=== PATIENT | female | born 1955 | race Caucasian/White ===

== ENCOUNTER 2017-01-14 09:58 | Inpatient (IN) | payer MEDICAID ==
[~2017-01-14] VITALS: Ht 160 cm; Wt 79.2 kg
--- NOTE | ~2017-01-14 | CO ---
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 intake, weight loss, was admitted recently with dehydration and acute renal failures, this has improved here recently and I have been asked to place a PowerPort for adjuvant chemotherapies for the squamous cell cancer and a PEG tube for assistance with enteral nutrition as she recovers. PAST MEDICAL HISTORY: 1. Depression. 2. COPD. PAST SURGICAL HISTORY: 1. Ankle surgery. 2. Recent tonsillar cancer removal. 3. She has had some of her teeth removed recently as well. ALLERGIES: SHE HAS NO ALLERGIES. MEDICATIONS: Outlined in the hospital chart. FAMILY HISTORY: Noncontributory. SOCIAL HISTORY: She has been a drinker and smoker in the past. REVIEW OF SYSTEMS: Denies headaches. Denies chest pain or shortness of breath. No abdominal discomfort. No hematologic, neurologic, or psychiatric issues. ADMIT: 01/14/2017 RM/LOC: 509 [facility] MR#: [id number] [address] [place] [id number] S[facility] VALERIO [address] [place] [id number] Consultation SEX: F AGE: 61 : 1955 PHYSICAL EXAMINATION: GENERAL: She is afebrile. Vitals stable. HEART: Regular. LUNGS: Clear. ABDOMEN: Soft, nondistended, nontender. EXTREMITIES: No peripheral edema. NEURO: No focal neurologic deficits. ASSESSMENT AND PLAN: The patient is a 61-year-old with stage IV squamous cell cancer with poor oral intake, in need of adjuvant therapies. Our plan is for PowerPort placement and EGD, PEG tube placement in the near future. Risks and benefits were discussed. Zane Condon MD/ manjinder JOB #: [id number] CC: Kelsie James, Attending Physician Kelsie James, Family Physician
--- NOTE | ~2017-01-14 | HP ---
ADMIT: 01/14/2017 RM/LOC: 304 [facility] MR#: [id number] [address] [address] SINAI VALERIO J [address] [place] [address] History and Physical SEX: F AGE: 61 : 1955 DATE OF SERVICE: CHIEF COMPLAINT: Cognitive change, hypotension, and just not acting herself. HISTORY OF PRESENT ILLNESS: Sinai is a 61-year-old white female, who over the last 3 weeks has had quite a few things happen to her. She was having problems with the throat pain. She apparently saw her dentist (Dr. Zane Silva) who then suggested she see Dr. Seo as an oral surgeon for a biopsy of an area in the tonsil that looked suspicious. He then suggested they see Dr. Acosta, but due to it possibly being malignancy apparently set her up to be seen in [place] at the [facility]. It sounds like it was an oral surgeon. Went to [place] where they did a full dental extraction and did a biopsy of this mass. 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 Family is kind of unclear also. She got the diagnosis returned and has seen Dr. Daniels on a couple of occasions outlining the course of therapy. She is going to be needing to have a port placed as well as a G-tube in addition to other things. Since about mid week, she had been increasingly tired and run down. She has been sleeping nearly all the time. She is having a great difficulty swallowing, so has not really been taking much in. Consequently, she has become increasingly dehydrated. Today, she was incoherent, and family decided she should come in to be seen. She was brought to the emergency room where she was found to be in acute renal failure with a BUN of 122 and a creatinine of 8.2. 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 Since she has been in the emergency room and received a little fluid, she has actually improving a bit. She is a little bit more conversant. She was not found to have any sources of infection, but was acidotic at pH 7.02. There was suspicion that just lack of eating and severe dehydration combined with some narcotic she was taking for her mouth and post extraction pain all contributed. PAST MEDICAL HISTORY: Squamous cell carcinoma - stage IV, hypertension, depression, and COPD. MEDICATIONS: 1. Citalopram 10 mg daily. 2. Previously on a blood pressure pill. 3. Advair. 4. Albuterol p.r.n. Pain medications including the following that had been prescribed since her extraction by multiple providers so I am not really sure what she is taking at this moment: 1. Percocet 10/325. 2. [employer] 7.5, 1 to 2 q.6 p.r.n. 3. Morphine ER 15 mg q.12. 4. [employer] 7.5, 1 to 2 q.4 to 6 p.r.n. ALLERGIES: NONE KNOWN. ADMIT: 01/14/2017 RM/LOC: 304 [facility] MR#: [id number] [facility] [address] [address] SINAI VALERIO [address] [place] [address] History and Physical SEX: F AGE: 61 : 1955 SOCIAL HISTORY: She is single, but I am not sure if she is or not. She smoked 1 pack per day for many years. Drinks about 4 beers a day. She did quit smoking on the day of her biopsy. Otherwise, does not really have a steady job at this time. She has a son and a daughter. FAMILY HISTORY: Positive for macular degeneration in her mother. No diabetes. Possibly hypertension, but the kids are not sure. No cancer. REVIEW OF SYSTEMS: Really not able to take much because she has been obtunded and is starting to wake up. She is becoming conversant, but still not able to give us much history. PHYSICAL EXAMINATION: VITAL SIGNS: On arrival with a blood pressure 81/42, pulse 115, respirations 13, and temp 96.6. GENERAL: This is a well-developed, well-nourished white female, who is lying in bed. SKIN: Warm and dry. HEENT: Normocephalic and atraumatic. Anicteric. Mucous membranes are dry. Her eyes are kind of opened and glazed. She does focus and answer questions. NECK: Supple. Little bit of redness over on that right side. Maybe some previous bruising. LUNGS: Diminished, but loose cough. No wheezing. CARDIOVASCULAR: Regular without murmur or gallop. No ectopy. ABDOMEN: Soft. GENITOURINARY AND RECTAL: Deferred. EXTREMITIES: No edema. IMPRESSION: 1. Acute renal failure likely from dehydration. 2. Metabolic acidosis. 3. Hypotension. 4. Newly diagnosed squamous cell carcinoma of the oropharynx. 5. History of depression. 6. Chronic obstructive pulmonary disease. ADMIT: 01/14/2017 RM/LOC: 304 [facility] MR#: [id number] [facility] [address] [address] SIN[facility] VALERIO [address] [place] [address] History and Physical SEX: F AGE: 61 : 1955 PLAN: 1. IV fluids. 2. Zosyn to cover for now. 3. Bicarb. 4. Repeat labs. Hopefully, we will not have to have a employment office clerk be involved. 5. See chart. Kelsie James MD/ manjinder JOB #: [id number] CC: Kelsie James, Attending Physician Kelsie James, Family Physician Bruce Daniels MD . [facility]
--- NOTE | 2017-01-18 09:46 | CO ---
ADMIT: 01/14/2017 RM/LOC: 304 [facility] MR#: [id number] [address] [address] [facility] [address] [address] Consultation SEX: F AGE: 61 : 1955 DATE OF CONSULTATION: 01/15/2017 ATTENDING PHYSICIAN: Kelsie James CONSULTING PHYSICIAN: Jayshree Stark MD REASON FOR CONSULTATION: Acute kidney injury. HISTORY OF PRESENT ILLNESS: The patient is a 61-year-old female, who has had a rough last few weeks. She initially had a chief complaint of throat pain. Upon workup, she was noted to have a mass by her dentist. Eventually, she had a histologic diagnosis that reportedly is consistent with some squamous cell carcinoma. She did have a dental extraction last week. Since then, she has been eating poorly. She also reportedly drinks alcohol on a daily basis but she has not been eating and drinking very well for the last 2 or 3 days. In addition, she was prescribed ibuprofen for her pain that she had been taking at home. Eventually, she was brought to the hospital yesterday with altered mental status. She was noted to be in acute renal failure with creatinine of 8.2. Her BUN was elevated to 122. She was also hyperkalemic with potassium of 6.1. Her sodium was low at 128. She was given IV fluids and also some sodium bicarbonate because of the concern of her acidosis and her creatinine is down to 4.4 this morning. Her BUN is decreased to 105. Potassium is improved to 4.2. Her sodium has corrected to 141. She has a robust urine output in excess of 100 mL an hour at this time. At this time, she is comfortable. She is getting oxygen via face mask. She denies any breathing complaints. She notes that her pain is fairly well controlled. Denies any nausea or abdominal pain. She has a Packer catheter in situ. Denies any lower extremity edema. REVIEW OF SYSTEMS: A complete review of systems is negative in detail except as mentioned in history of present illness above. PAST MEDICAL HISTORY: 1. Recently-diagnosed squamous cell carcinoma of the head and neck stage IV. 2. Hypertension. 3. Depression. 4. COPD. MEDICATIONS: Reviewed in the chart. ALLERGIES: NO KNOWN DRUG ALLERGIES. SOCIAL HISTORY: She has an extensive smoking history, but reports that she quit recently. She drinks at least 4 beers a day. FAMILY HISTORY: No family history of chronic kidney disease or renal replacement therapy. ADMIT: 01/14/2017 RM/LOC: 304 [facility] MR#: [id number] [address] [address] [facility]ER[facility] [address] [place] [address] Consultation SEX: F AGE: 61 : 1955 PHYSICAL EXAMINATION: VITAL SIGNS: Temperature 99.1 Fahrenheit, pulse 106, blood pressure 112/46. In's and out's have been 5521 in and 600 mL out prior to this discharge. She has already had an L of urine since then. GENERAL: She is comfortable. HEENT: Head is nontraumatic and normocephalic. Pale conjunctivae. She is wearing a face mask for supplemental O2. No JVD. CHEST: Clear to auscultation. CVS: Tachycardic. S1, S2 heard. No rubs, murmurs, or gallops. ABDOMEN: Soft and nontender. EXTREMITIES: No edema. SKIN: No rash or nodules. MUSCULOSKELETAL: Major joints within normal limits. Range of motion within normal limits. NEUROLOGIC: She is alert and she is able to move all extremities. LABORATORY DATA: Reviewed. Trend of her electrolytes and creatinine outlined above. Most recent sodium was 141, potassium was 4.2, CO2 of 20, her creatinine is 4.2, hemoglobin is 9.3. Her ABG most recently showed pH of 7.157 with pCO2 of 49.4. Urinalysis had 1+ protein, trace blood, and negative leukocyte esterase. Her chest x-ray was unremarkable. ASSESSMENT AND PLAN: 1. 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 She is nonoliguric and her kidney function is improving. Her urinalysis is noninflammatory. Continue supportive care. Avoid nephrotoxins, NSAIDs, IV contrast, or Fleets enemas. Monitor kidney function closely. 2. Respiratory and metabolic acidosis-improving. Her acidosis is a component of the tooth. 3. Hyponatremia-she has had a rapid correction in her hyponatremia. Her hyponatremia is likely secondary to intravascular volume depletion. I will check a urine osmolality. I anticipate her serum sodium will rise further with her robust urine output this morning. I will stop her normal saline and change her to hypotonic D5 water and monitor her serum sodium with these interventions. Thank you for this consultation and allowing me the opportunity to participate in this patient's care. Please do not hesitate to contact me with any questions. Jayshree Stark MD/ manjinder JOB #: [id number] CC: Kelsie James, Attending Physician ADMIT: 01/14/2017 RM/LOC: 304 [facility] MR#: [id number] [address] [place] [id number] S[facility] VALERIO [address] [place] [address] Consultation SEX: F AGE: 61 : 1955 Kelsie James Family Physician
--- NOTE | 2017-01-22 08:11 | ER ---
ADMIT: 01/14/2017 RM/LOC: ER [facility] MR#: [id number] [address] [address] [facility]almis [address] [place] [address] Emergency Room Report SEX: F AGE: 61 : 1955 DATE: 01/14/2017 ADDENDUM: CHIEF COMPLAINT: Confusion. HISTORY OF PRESENT ILLNESS: This 61-year-old, who was recently just diagnosed with a squamous cell carcinoma, daughter believes in the tongue or the throat area. She has recently just seen multiple doctors within the last couple weeks regarding this diagnosis figuring out chemotherapy, radiation, and surgeries. Daughter said she went to go check on her today because she had a that she knew her mom had to go to. She went there. Her mom was still in her PJs. She was confused and did not know where she was. Mother could not remember when she had taken pain medications last, could not remember the last time she had ate or drank anything. COURSE IN THE EMERGENCY ROOM: Sepsis protocol was ordered. Initially, I ordered a head CT but then when viewing labs, I think her confusion is secondary to her uremia, so I spoke with Dr. Tapia, we agreed to cancel head CT at that time. She has been given a total of 1 L of normal saline, now going at 100 mL/h. Overall findings in the emergency room, EKG showed sinus tach with a rate of 105. No ST elevation or depression. No peaked T-waves. CBC showed a white count of 15.4, hemoglobin 11.3, platelets 601. Lactic acid 1.2. CMP; sodium 128, potassium 6.1, chloride 91, bicarb is 10, BUN is 122, glucose is 104, creatinine is 8.2, calcium 7.8, inorganic phosphorus is 11.9, albumin 2.7, AST 9, ALT 11, magnesium 3.5. She has an anion gap of 33. GFR of 5. Her relative index is 4.9. Troponin is 0.157. Her CK and MB are normal. PT/INR normal. Procalcitonin is 4.71. She has A negative blood. Urine showed 20 white blood cells, trace of blood, and 1+ protein. Chest x-ray showed no acute disease over-read by Dr. Tapia. At this time, after talking to Dr. James, I have ordered a V/Q scan and ABGs, those are still awaiting to be done. Dr. James is coming in to the ER to give orders for the patient. ADMIT: 01/14/2017 RM/LOC: ER [facility] MR#: [id number] [address] [place], [place] [id number] [facility] VALERIO [address] [place] [address] Emergency Room Report SEX: F AGE: 61 : 1955 CLINICAL IMPRESSION: 1. Acute renal failure. 2. Uremia. 3. Hyponatremia. 4. Hyperkalemia. 5. Elevated procalcitonin, but at this time no source of infection. DISPOSITION: I have started Zosyn down here in the emergency room, it is more of a cautionary at this time, fluids are going at 100 an hour due to her kidney injury, Dr. Tapia and I discussed after the liter of bolus to change it to 100 an hour. CRYSTAL Martinez / Richard Tapia MD / modl JOB #: [id number] CC: Richard Tapia MD, Attending Physician UNKNOWN, Family Physician
--- NOTE | 2017-01-23 09:57 | CO ---
ADMIT: 01/14/2017 RM/LOC: 304 [facility] MR#: [id number] [address] [address] IMAN [facility] Idalmis [address] [place] [address] Consultation SEX: F AGE: 61 : 1955 DATE OF CONSULTATION: 01/14/2017 ATTENDING PHYSICIAN: Kelsie James CONSULTING PHYSICIAN: Bruce Daniels MD REASON FOR CONSULTATION: Newly diagnosed cancer, acute kidney injury. HISTORY OF PRESENT ILLNESS: This is a 61-year-old female, with whom I met the very first time 4 days ago in clinic to discuss her new diagnosis of cancer. She was diagnosed with stage JENNIFER base of tongue head and neck squamous cell carcinoma. Her cancer presentation spans back approximately 6 months to last July of 2016 when she first noticed a sore throat. She went through 2 rounds of antibiotics without resolution of her sore throat and eventually made her way to a dentist who identified a mass concerning for head and neck cancer. She was referred eventually on to [facility] in early December of 2016 where she was seen by Dr. Sanchez Das and underwent a completion of her dental extraction and biopsy of the mass 10 days prior to now. The patient has been given pain medications for her odynophagia related to her mass and recent dental extraction. She informed me in our clinic visit that she was taking these every 5 hours with the pain peaking in between and significant suffering if she fell behind on her dosing. I did add 15 mg of long-acting morphine 4 days ago at our visit. She also was complaining of some depressed mood, although said she was a fighter and was of the mindset to push forward on treatment. I did start a low-dose citalopram at 10 mg daily at our meeting as well. Over the last 4 days, she has apparently declined rapidly with increasing confusion and not acting like herself. History is corroborated with her daughter who unfortunately was not there to witness all of it, but did note that her mother was contacting her less often than usual. She did not sound like herself on the phone either. The patient admitted to 40 pounds of weight loss, with the bulk of this happening in the last month and she admitted that she has been limiting herself to soups, [employer] breakfast, and other liquid forms of calories but did not have any idea of how long or how many calories she was consuming per day. From a cancer workup plan, we determined that the next steps would be to meet with Dr. Grant which did occur yesterday at initial consultation visit, place a port and a G tube for feeding and obtain a PET scan to confirm the stage JENNIFER with bilateral neck disease. At present time, however, she is in acute renal failure with significant metabolic and respiratory acidosis complications and significant hypotension at present. PAST MEDICAL HISTORY: Hypertension, depression, COPD, and tobacco abuse. MEDICATIONS: Outpatient: 1. Citalopram 10 mg daily. 2. Albuterol p.r.n. 3. Advair. 4. Percocet 10/325 q.5 hours p.r.n. ADMIT: 01/14/2017 RM/LOC: 304 [facility] MR#: [id number] [address] [place] [phone] [facility] VALERIO [address] [place] [address] Consultation SEX: F AGE: 61 : 1955 5. Morphine SA 15 mg q.12 hours. ALLERGIES: NO KNOWN MEDICAL ALLERGIES. SOCIAL HISTORY: The patient lives with a significant other named Iglesia. They have been together for over 12 years. She has greater than 40 pack years of smoking history, smoking 1 pack per day, recently decreased around the time of diagnosis. Some alcohol exposure, but denied abusing. Standard limits. She is unemployed and uninsured. She has 1 son and 1 daughter. FAMILY HISTORY: No cancer in her history. REVIEW OF SYSTEMS: Unable to perform review of systems due to the patient's lethargic state. PHYSICAL EXAM: VITAL SIGNS: Blood pressure 74/31 with a mean arterial pressure of 41, pulse 108, respiratory rate 16, temp 96.6, and saturating 91% on 2 L nasal cannula. GENERAL: This is a lethargic female, who is able to open eyes to command, but unable to answer any questions or identify any orientation questions. HEENT: Pupils are equal, round, and reactive to light. Sclerae are nonicteric. Mouth shows dry mucous membranes. Edentulous with evidence of recent tooth extraction. Stitches present in gums. Detailed exam of the base of tongue not performed, but known mass centering on the right side of the base of tongue. NECK: Shows bilateral submandibular lymphadenopathy. HEART: Tachycardic with no murmurs, rubs, or gallops. LUNGS: Clear to auscultation bilaterally. Normal respiratory effort. ABDOMEN: Soft, nondistended. Bowel sounds are positive. EXTREMITIES: Warm to touch. No livido reticularis appreciated. No clubbing. No cyanosis. No edema. SKIN: No rashes. No palpable or pigmented lesions of concern. LABORATORY AND RADIOLOGY: Arterial pH 7.022, CO2 of 40, O2 of 96. Procalcitonin 4.71, lactic acid 1.2. WBC 15.4, hemoglobin 11.3, and platelets 601. Sodium 128, potassium 6.1, chloride 91, bicarb 10, BUN 122, creatinine 8.2, calcium 7.8, and magnesium 3.5. Chest x-ray within normal limits. V/Q scan within normal limits. IMPRESSION AND RECOMMENDATIONS: This 61-year-old female with head and neck squamous cell carcinoma stage JENNIFER, base of tongue, acute kidney injury, metabolic and respiratory acidosis, septic shock. 1. Head and neck squamous cell carcinoma. The patient's current cancer planning and workup will be secondary this admission. Consideration of placing a feeding tube after acute recovery 3 or 4 days from now, may be had while she is inpatient. This may help prevent further problems with decreased oral intake, both now and after chemo radiation begins. Although she is stage JENNIFER at this time, she is still considered ADMIT: 01/14/2017 RM/LOC: 304 [facility] MR#: [id number] [address] [address] S[facility] VALERIO J [address] [place] [address] Consultation SEX: F AGE: 61 : 1955 potentially curable, thus, full aggressive cares are appropriate. I do not have the impression that she intentionally overdosed on any medications or intentionally decreased her oral intake from my previous clinic visit with her. 2. Acute renal failure. The patient is at present receiving aggressive fluids, but has several abnormalities of concern. If the patient does not correct her acidosis and hyperkalemia over the next day, temporary dialysis may be in order. 3. Hypertension. Suspect this could be stemming from a septic shock picture with cultures pending at this time. Recent dental extraction would be the leading suspect for the source of infection. She is appropriately covered with Zosyn at this time. Thank you for this interesting consultation. Please call with any further questions. Total time spent 70 minutes. Bruce Daniels MD/ manjinder JOB #: [id number] CC: Kelsie James, Attending Physician Kelsie James, Family Physician
--- NOTE | 2017-01-24 01:17 | DS ---
ADMIT: 01/14/2017 RM/LOC: 509 MR#: [id number] [address] [address] IMAN SINAI Idalmis [address] [place] [address] Discharge Summary SEX: F AGE: 61 : 1955 ADMISSION DATE: 01/14/2017 DISCHARGE DATE: 01/20/2017 DIAGNOSES: 1. Acute renal failure-resolved. 2. Metabolic acidosis. 3. Dehydration. 4. Hypotension-resolved. 5. Hypertension. 6. Squamous cell carcinoma, stage IV? 7. Right tonsil-newly diagnosed. 8. Recent dental extractions. 9. Weakness. 10.Malnutrition. 11.Encephalopathy-acute, improved. 12.Probable metabolic. 13.Hypocalcemia. 14.COPD (chronic obstructive pulmonary disease). 15.Hypokalemia. 16.Hypomagnesium. 17.Anemia, NOS (not otherwise specified). 18.C (clostridium) difficile colitis. 19.Duodenal ulcer. 20.Vanessa-Fitzgerald tear. 21.Sinus tachycardia. PROCEDURE: 1. V/Q scan 01/14/2017. 2. Art line 01/14/2017. 3. PEG 01/18/2017. 4. Port 01/18/2017. CONSULTS: 1. Oncology with Dr. Daniels. 2. Nephrology with Dr. Stark. 3. Surgery with Dr. Condon. REASON FOR HOSPITALIZATION: Cognitive change with dehydration and acute renal failure. See dictated H and P. LABORATORY AND X-RAY DATA: Chest x-ray on admission with some mild peribronchial cuffing but nothing acute. V/Q scan was negative. Stool with C diff on 01/17/2017. Blood cultures and urine cultures all were negative. On admission, pH 7.02, pCO2 40 and PO2 of 96. Final gases with a pH 7.38, pCO2 of 36 and a PO2 of 77.6. Sodium 128, did correct up to 145, final value 136. Potassium 6.1, final down to 2.8, final value 4.3. Chloride 101. CO2 was 10 on admission, 28 on discharge. BUN 22, down to 6, creatinine 8.2, down to 0.5, calcium 8.1, phosphorus 11.9 down to 2.2, total bilirubin 0.2, total protein 7.9, albumin 2.7, alkaline phosphatase 78, AST 9, ALT 11, magnesium ADMIT: 01/14/2017 RM/LOC: 509 MR#: [id number] [address] [address] SINAI VALERIO [address] [place] [address] Discharge Summary SEX: F AGE: 61 : 1955 3.5, down to 1.4. Anion was 33 down to 11. GFR started at 5, final was 104. INR 1.07, PTT 33.7, white blood count 15.4 down to 9.3, hemoglobin 11.3, final value 9.8, platelet count 328. Lactic acid 1.2. Procalcitonin 4.71. Urine was negative. 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 She was started on Zosyn in case something was going on in her mouth. Given multiple boluses of normal saline as well as bicarb due to her profound metabolic acidosis related to her renal failure. An arterial line was placed to follow with her blood pressures which were systolics in the 70 range when she was first admitted. This did help. Zosyn was eventually stopped. Magnesium, calcium and potassium were all supplemented as needed. She initially was given Levophed for blood pressure support but this was rapidly weaned off on 01/15/17. She had a prolonged period of metabolic acidosis which thankfully did start to improve. When it did, her cognition did improve. Even her motivation began to improve. She was given 48 hours of Tylenol on 01/16 due to her lack of good pain relief. This was deemed to help a little. She began having stools that were frequent. C differential was checked and was abnormal. With positive C differential, she was started on Flagyl orally. Did contact surgery for more custodial issues. She had a port placed without difficulty. With her PEG, she was taught how to supplement herself. She and her daughter did well. She began to clear mentally which was an improvement. It was felt she needed more assistance to get back on board. For this reason, she will be going to the IRU. DISCHARGE MEDICATIONS: Discharge medications will include: 1. Her tube feedings of Osmolite 1.51 120 mL t.i.d. with 30 mL water flush before and after. 2. Celexa 10 mg daily. 3. Flagyl 500 mg every 8 hours for an additional four days. 4. Lopressor 25 b.i.d. 5. Anoro ELLIPTA daily. 6. DuoNebs q.i.d. 7. Habitrol 14 mg topically patch daily. 8. Protonix 40 mg per liquid daily. ADMIT: 01/14/2017 RM/LOC: 509 MR#: [id number] [address] [address] SINAI VALERIO [address] [place] [address] Discharge Summary SEX: F AGE: 61 : 1955 9. Hydrocodone 7.5/325, one q.4 hours p.r.n. DISCHARGE INSTRUCTIONS: I will follow peripherally until she is discharged and then assume care. Overall prognosis is fair. Time spent 30 minutes. Kelsie James MD/ maia JOB #: [id number] CC: Kelsie James MD, Attending Physician Kelsie James MD, Family Physician MD Bruce Blood MD John D Goering, MD Shane J Burr, MD
[2017-01-30] MEDS ORDERED: CELEXA DPS20 MG PO (13:29)
[2017-01-30] MEDS ORDERED: LOPRESSOR DPS50 MG PO (13:29)
[2017-01-30] MEDS ORDERED: PROTONIX40 MG PO (13:29)
[2017-01-30] MEDS ORDERED: NEURONTIN DPS600 MG PO (13:29)
[2017-01-30] MEDS ORDERED: FEOSOL-DPS325 MG PO (13:29)
[2017-01-30] MEDS ORDERED: VITAMIN D50000 UNIT PO (13:30)
[2017-01-30] MEDS ORDERED: ASCORBIC ACID500 MG PO (13:30)
[2017-01-30] MEDS ORDERED: PROVENTIL HFA6.7 GM IH (13:31)
[2017-01-30] MEDS ORDERED: VITAMIN D31000 UNIT PO (13:31)
[2017-01-30] MEDS ORDERED: ANORO ELLIPTA 62.1 - IH (13:31)
[2017-01-30] MEDS ORDERED: NICODERM CQ1 EAC1 TP (13:31)
[2017-01-30] MEDS ORDERED: OXY IR DPS5 MG PO (13:32)
[2017-01-30] MEDS ORDERED: ANBESOL TP (13:32)
[2017-01-30] MEDS ORDERED: SENOKOT S1 TAB PO (13:33)
[2017-01-30] MEDS ORDERED: SPORTS CREAM85 GM TP (13:33)
--- NOTE | 2017-01-31 08:53 | CO ---
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 As a result of this surgery, the patient has been experiencing some painful swallowing and chewing, thus leading to decreased p.o. intake. Several days ago, it was noted that the patient had an acute episode of confusion and low blood pressures, so the patient has been admitted to the hospital and was in the ICU. She is now tele status. Currently, the patient denies any nausea, vomiting, diarrhea, constipation, dark or bloody stools. PAST MEDICAL HISTORY: Significant for depression, COPD. Also, please see HPI. PAST SURGICAL HISTORY: Ankle surgery. ALLERGIES: NO KNOWN DRUG ALLERGIES. MEDICATIONS: Well documented in chart. FAMILY HISTORY: Noncontributory. SOCIAL HISTORY: The patient is an alcohol and tobacco user, pre-heavy, but has quit since her recent surgery. REVIEW OF SYSTEMS: CONSTITUTIONAL: The patient denies any fever, chills, or night sweats. The rest of comprehensive 10-point review of systems was performed and all other systems are negative. PHYSICAL EXAMINATION: GENERAL: The patient in no acute distress. She is alert and oriented. HEENT: Head is normocephalic and atraumatic. EOMS are intact. Conjunctivae free of icterus, erythema, or pallor. Pinnae, free of deformities. Nose, midline. No tracheal deviation. Mouth; healing incision noted on the right aspect of the oropharynx. No dentition noted. Uvula rises appropriately. NECK: Supple. SKIN: Negative for jaundice, clubbing, edema, pallor, or cyanosis. LUNGS: Normal respiratory effort. Clear to auscultation bilaterally. HEART: Regular rate and rhythm. No murmurs noted. ABDOMEN: Soft, nondistended, and nontender. ADMIT: 01/14/2017 RM/LOC: 304 [facility] MR#: [id number] [address] [address] SINAI VALERIO [address] [place] [address] Consultation SEX: F AGE: 61 : 1955 NEURO: Grossly intact. ASSESSMENT: 1. Stage IV squamous cell carcinoma. 2. Odynophagia. PLAN: Plan is to have the patient undergo a port and EGD with PEG tube placement preferably today. I discussed the risks, alternatives, benefits, and complications of these procedures with the patient to which she in agreement of this plan, had all her questions answered and would like to proceed. I will try to put her on schedule today and see if Dr. Brizuela is available to do this case, otherwise, I will plan for Dr. Condon to do it later or possibly tomorrow. Thanks for the consultation this patient. CRYSTAL Daigle / Zane Condon MD / manjinder JOB #: [id number] CC: Kelsie James, Attending Physician Kelsie James, Family Physician
--- NOTE | 2017-01-31 08:53 | OR ---
ADMIT: 01/14/2017 RM/LOC: 509 [facility] MR#: [id number] [facility]#: [id number] [address] [address] SINAI VALERIO Idalmis [address] [place] [address] Operative/Delivery Room Report SEX: F AGE: 61 : 1955 SURGERY DATE: 01/18/2017 SURGEON: Zane Condon MD PREPROCEDURE DIAGNOSES: 1. Tonsillar cancer. 2. Failure to thrive. POSTPROCEDURE DIAGNOSES: 1. Tonsillar cancer. 2. Duodenal ulcers. 3. Vanessa-Fitzgerald tear. 4. Hiatal hernia. 5. Distal esophagitis. PROCEDURES: 1. EGD with PEG tube placement. 2. Antral biopsies. 3. Power port placement. FINDINGS: Patient taken to the operating room. IV sedation was given. The chest and neck were prepped and draped in normal sterile fashion. The case was begun by injecting 1% lidocaine subclavicularly on the right side. An introducer needle was placed in the right subclavian vein, wire was threaded under fluoroscopic guidance in the right ventricle. An Spbmho-M-Fqlw pocket was made with a #15 blade cautery and blunt finger dissection. A dilator and sheath were placed over a wire. Our catheter was cut to 15 cm and assembled. Our catheter was then threaded through our sheath under fluoroscopic guidance with the tip in the right atrium. The catheter aspirated and flushed without difficulty. It was then flushed with heparinized saline. The port was sutured to the pectoral fascia using a 2-0 Prolene suture. The wound was closed with interrupted deep 3-0 Vicryl subdermal sutures and a running 4-0 Vicryl subcuticular skin stitch. The wound was cleaned and dried and dressed. We then prepped the patient for the G-tube. We placed the gastroscope down the oropharynx, down the esophagus, into the stomach, through the pylorus into the duodenum where there were nonbleeding duodenal ulcers. I did do antral biopsies to rule out Helicobacter. On retroflexion view, there was 2-3 cm hiatal hernia and mild evidence of esophagitis. With palpation and transillumination, there was an area in the left subcostal region of the abdominal wall for safe G-tube placement. After prepping, I injected 1% ADMIT: 01/14/2017 RM/LOC: 509 [facility] MR#: [id number] [address] [address] SINAI VALERIO [address] [place] [address] Operative/Delivery Room Report SEX: F AGE: 61 : 1955 lidocaine. I made a transverse 1 cm skin incision using #11 blade. An Angiocath was placed into the stomach and a wire was threaded through the Angiocath and grasped with the wire loop and brought out through the mouth. A PEG tube was then threaded over our wire and brought up to the anterior abdominal wall with skin markings at 5 cm. The G-tube was assembled. The gastroscope was replaced down the oropharynx, down the esophagus, where it showed the G-tube in good position within the gastric body, antral junction. In addition to the duodenal ulcers that I noted, there was also a Vanessa- Fitzgerald tear in the fundic portion of the stomach that was also nonbleeding, the duodenal ulcer was nonbleeding as well. The air was desufflated, gastroscope were removed. The patient tolerated the procedure without difficulty, transferred to recovery room in good condition. Zane Condon MD/ manjinder JOB #: [id number] CC: Kelsie James, Attending Physician Kelsie James, Family Physician
[2017-04-20] MEDS ORDERED: VITAMIN D1000 UNI1 GT (14:34)
[2017-04-20] MEDS ORDERED: DELTASONE DPS10 MG GT (14:35)
[2017-04-20] MEDS ORDERED: OXY IR DPS5 MG GT (14:35)
[2017-05-03] MEDS ORDERED: CORDARONE DPS200 MG GT (14:13)
[2017-05-03] MEDS ORDERED: TYLENOL DPS325 MG GT (14:14)
[2017-05-03] MEDS ORDERED: DUONEB DPS3 ML IH (14:15)
[2017-05-03] MEDS ORDERED: CELEXA DPS20 MG GT (14:15)
[2017-05-03] MEDS ORDERED: NEURONTIN250 MG/5 M GT (14:15)
[2017-05-03] MEDS ORDERED: ROXICODONE5 MG/5 ML GT (14:16)
[2017-05-03] MEDS ORDERED: MUCOMYST 20% IH (14:16)
[2017-05-03] MEDS ORDERED: PEPCID DPS20 MG GT (14:16)
[2017-05-03] MEDS ORDERED: DELTASONE DPS5 MG GT (14:17)
[2017-05-03] MEDS ORDERED: ROBITUSSIN200 MG/10 GT (14:17)
[2017-05-03] MEDS ORDERED: LIDOCAINE VISCO15 ML PO (14:18)
[2017-05-03] MEDS ORDERED: HYDROPHOR OINT450 GM TP (14:18)
[2017-05-03] MEDS ORDERED: COLACE-DPS100 MG GT (14:19)
[2017-05-03] MEDS ORDERED: MAALOX DPS30 ML GT (14:19)
[2017-05-03] MEDS ORDERED: AUGMENTIN400 MG/5 M GT (14:20)
[2017-06-10] MEDS ORDERED: DUONEB DPS3 ML IH (19:35)
[2017-06-10] MEDS ORDERED: CORDARONE DPS200 MG PO (19:35)
[2017-06-10] MEDS ORDERED: CELEXA DPS20 MG PO (19:35)
[2017-06-10] MEDS ORDERED: GABAPENTIN250 MG/5 M PO (19:36)
[2017-06-10] MEDS ORDERED: PEPCID DPS20 MG PO (19:36)
[2017-06-10] MEDS ORDERED: ROBITUSSIN100 MG/5 M PO (19:37)
[2017-06-10] MEDS ORDERED: HYDROPHOR OINT450 GM TP (19:37)
[2017-06-10] MEDS ORDERED: LIDOCAINE VISCO15 ML PO (19:37)
[2017-06-10] MEDS ORDERED: ROXICODONE5 MG/5 ML PO (19:38)
[2017-06-10] MEDS ORDERED: TYLENOL DPS325 MG PO (19:38)
[2017-06-10] MEDS ORDERED: COLACE-DPS100 MG PO (19:38)
[2017-06-10] MEDS ORDERED: MAALOX DPS30 ML PO (19:38)
[2017-06-10] MEDS ORDERED: DURAGESIC1 EAC4 TD (19:39)
[2017-06-10] MEDS ORDERED: [UNRECOGNIZED DRUG - OTHER] PO (19:40)
[2017-06-10] MEDS ORDERED: PROVENTIL HFA6.7 GM IH (19:40)
[2017-06-10] MEDS ORDERED: VIBRAMYCIN-DPS100 M1 PO (19:41)
[2017-06-10] MEDS ORDERED: DELTASONE DPS5 MG PO (19:44)
[2017-06-10] MEDS ORDERED: [UNRECOGNIZED DRUG - OTHER] TP (19:45)
[2017-07-18] MEDS ORDERED: ROBAFEN100 MG/5 M PO (19:12)
[2017-07-18] MEDS ORDERED: ROXICODONE5 MG/5 ML PO (19:12)
[2017-07-18] MEDS ORDERED: PROAIR HFA8.5 GM IH (19:12)
[2017-07-18] MEDS ORDERED: AMIODARONE HCL100 MG PO (19:13)
[2017-07-18] MEDS ORDERED: CLARITIN DPS10 MG PO (19:13)
[2017-07-18] MEDS ORDERED: GABAPENTIN250 MG/5 M PO (19:13)
[2017-07-18] MEDS ORDERED: CELEXA DPS20 MG PO (19:13)
[2017-07-18] MEDS ORDERED: VITAMIN D1000 UNI1 PO (19:13)
[2017-07-18] MEDS ORDERED: PEPCID DPS20 MG PO (19:14)
[2017-07-18] MEDS ORDERED: DURAGESIC1 EAC3 TD (19:15)
[2017-07-18] MEDS ORDERED: COLACE-DPS100 MG PO (19:15)
[2017-07-18] MEDS ORDERED: DUONEB DPS3 ML IH (19:15)
[2017-07-18] MEDS ORDERED: DELTASONE DPS20 MG PO (19:17)
[2017-07-18] MEDS ORDERED: CIPRO DPS500 MG PO (19:17)
[2017-07-18] MEDS ORDERED: PROVENTIL2.5 MG/3 M IH (19:18)
[2017-07-18] MEDS ORDERED: TYLENOL DPS325 MG PO (19:18)
[2017-07-18] MEDS ORDERED: ACETYLCYST200 MG/1 M IH (19:20)
== END 2017-01-20 12:30 | disposition short-term general hospital (02) | DRG 673 ==
LOC: ER 09:58 → 3ICU 13:30 → 5MS 13:30 → 4PCU 16:22 → 3ICU 16:29 → 5MS 01-18 04:07
PROVIDERS: ADMIT Internal Medicine
DX: N17.9 Acute kidney failure, unspecified (principal); G93.41 Metabolic encephalopathy; E87.4 Mixed disorder of acid-base balance; K22.6 Gastro-esophageal laceration-hemorrhage syndrome; A04.7 Enterocolitis due to Clostridium difficile; I95.9 Hypotension, unspecified; C01 Malignant neoplasm of base of tongue; E46 Unspecified protein-calorie malnutrition; E87.1 Hypo-osmolality and hyponatremia; E86.0 Dehydration; E87.5 Hyperkalemia; D63.0 Anemia in neoplastic disease; E83.51 Hypocalcemia; E83.42 Hypomagnesemia; K26.9 Duodenal ulcer, unspecified as acute or chronic, without hemorrhage or perforation; K20.9 Esophagitis, unspecified; I10 Essential (primary) hypertension; K44.9 Diaphragmatic hernia without obstruction or gangrene; F32.9 Major depressive disorder, single episode, unspecified; J44.9 Chronic obstructive pulmonary disease, unspecified; F17.210 Nicotine dependence, cigarettes, uncomplicated

== ENCOUNTER 2017-01-20 11:05 | Inpatient (IN) | payer MEDICAID ==
[~2017-01-20] VITALS: Ht 160 cm; Wt 73.7 kg
--- NOTE | 2017-01-21 22:42 | NUR ---
DAY SHIFT SUMMARY:RECEIVES SUPP TUBE FEED, TOTALLY DEPENDENT;DAUIS LEARNING TF; SEE OT FIM/DOC FOR GROOMING' SHOWERING, DRESSING AND SHOWER TRANSFER. MAX ASSIST FOR WIPING AND CHANGING DEPENDS AND GETTING CLOTHING UP/DOWN FOR TOILETING, 3 BLADDER ACCIDENTS; MIN ASSIST OF 1 FOR BED/CHAIR/TOILET TRANSFERS, MAX ASSIST FOR AMBULATION RT FATIGUE
[2017-01-30] MEDS ORDERED: CELEXA DPS20 MG PO (13:29)
[2017-01-30] MEDS ORDERED: PROTONIX40 MG PO (13:29)
[2017-01-30] MEDS ORDERED: NEURONTIN DPS600 MG PO (13:29)
[2017-01-30] MEDS ORDERED: FEOSOL-DPS325 MG PO (13:29)
[2017-01-30] MEDS ORDERED: LOPRESSOR DPS50 MG PO (13:29)
[2017-01-30] MEDS ORDERED: VITAMIN D50000 UNIT PO (13:30)
[2017-01-30] MEDS ORDERED: ASCORBIC ACID500 MG PO (13:30)
[2017-01-30] MEDS ORDERED: ANORO ELLIPTA 62.1 - IH (13:31)
[2017-01-30] MEDS ORDERED: VITAMIN D31000 UNIT PO (13:31)
[2017-01-30] MEDS ORDERED: NICODERM CQ1 EAC1 TP (13:31)
[2017-01-30] MEDS ORDERED: PROVENTIL HFA6.7 GM IH (13:31)
[2017-01-30] MEDS ORDERED: OXY IR DPS5 MG PO (13:32)
[2017-01-30] MEDS ORDERED: ANBESOL TP (13:32)
[2017-01-30] MEDS ORDERED: SPORTS CREAM85 GM TP (13:33)
[2017-01-30] MEDS ORDERED: SENOKOT S1 TAB PO (13:33)
--- NOTE | 2017-03-04 16:06 | DS ---
ADMIT: 01/20/2017 RM/LOC: 605 [facility] MR#: [id number] [address] [address] SINAI VALERIO [address] [place] [address] General Discharge Summary SEX: F AGE: 61 : 1955 ADMISSION DATE: 01/20/2017 DISCHARGE DATE: 01/29/2017 DISCHARGE DIAGNOSES: Impairment group code debility 16, debility noncardiac, nonpulmonary, etiologic diagnosis R53.1, weakness. Date of onset 01/14/2017, comorbid conditions per initial H and P. Other diagnoses per hospital course below. HOSPITAL COURSE: Please see my initial H and P for details prior to transfer the IRU. In brief, stage JENNIFER squamous cell carcinoma base of tongue, head and neck status post teeth extraction with dysphagia, odynophagia, 40-pound weight loss, protein-calorie malnutrition, G-tube in right chest port status with muscle weakness and difficulty in self-care and walking. Pain and bowel regimen were adjusted. SCDs, BALDEMAR hose, early ambulation. Encouraged isometrics and ankle pumps for DVT prophylaxis, Protonix 40 mg p.o. b.i.d., Proventil b.i.d. and b.i.d. p.r.n. for GERD and COPD respectively. Hydrocodone switched to oxycodone to limit delirium risk for pain control. Lab was monitored regularly. Dietitian followed to optimize nutrition. Pharmacy followed to optimize medication management. Gabapentin started for pain control as well as scheduled Tylenol. OxyIR adjusted. Celexa increased to 20 mg for depression. Hypomagnesemia replaced with IV mag sulfate. Iron deficiency treated with Feosol and vitamin C. Routine central line standing orders for the [id number]. Fecal occult blood x2 due to anemia. Vitamin D deficiency replaced with vitamin D 50,000 units and 1000 units daily. Orajel given for discomfort in mouth. Osmolite 1.5 discontinued. The patient was tolerating oral diet to be changed to p.r.n. Flushes only to maintain the PEG. Poor fluid intake. We supplemented per PEG p.r.n. Gabapentin was increased to 600 mg. DuoNeb discontinued. Low air loss mattress ordered. The patient was medically stable at the time of discharge. ADMIT: 01/20/2017 RM/LOC: 605 [facility] MR#: [id number] [address] [address] SINAI VALERIO [address] [place] [address] General Discharge Summary SEX: F AGE: 61 : 1955 Please see IRU interdisciplinary discharge summary for details regarding progress in therapy. DISCHARGE DISPOSITION: Home where she lives alone. [facility] following RN, PT, OT, and ST. No infusion services needed at the time of discharge. Was eating well. Had all DME for home. Handicap parking permit application completed. Family supportive. DISCHARGE MEDICATIONS: Please see discharge med rec. FOLLOWUP: Dr. James in 3 to 4 weeks. Cheri Rodriguez, onc[facility] to schedule appointment for followup. I discussed with Oncology, and plan was in place this year following week for PET scan and treatment arrangements. Antonio Carolina MD/ manjinder JOB #: [id number] CC:
[2017-04-20] MEDS ORDERED: VITAMIN D1000 UNI1 GT (14:34)
[2017-04-20] MEDS ORDERED: OXY IR DPS5 MG GT (14:35)
[2017-04-20] MEDS ORDERED: DELTASONE DPS10 MG GT (14:35)
[2017-05-03] MEDS ORDERED: CORDARONE DPS200 MG GT (14:13)
[2017-05-03] MEDS ORDERED: TYLENOL DPS325 MG GT (14:14)
[2017-05-03] MEDS ORDERED: NEURONTIN250 MG/5 M GT (14:15)
[2017-05-03] MEDS ORDERED: DUONEB DPS3 ML IH (14:15)
[2017-05-03] MEDS ORDERED: CELEXA DPS20 MG GT (14:15)
[2017-05-03] MEDS ORDERED: MUCOMYST 20% IH (14:16)
[2017-05-03] MEDS ORDERED: PEPCID DPS20 MG GT (14:16)
[2017-05-03] MEDS ORDERED: ROXICODONE5 MG/5 ML GT (14:16)
[2017-05-03] MEDS ORDERED: DELTASONE DPS5 MG GT (14:17)
[2017-05-03] MEDS ORDERED: ROBITUSSIN200 MG/10 GT (14:17)
[2017-05-03] MEDS ORDERED: HYDROPHOR OINT450 GM TP (14:18)
[2017-05-03] MEDS ORDERED: LIDOCAINE VISCO15 ML PO (14:18)
[2017-05-03] MEDS ORDERED: COLACE-DPS100 MG GT (14:19)
[2017-05-03] MEDS ORDERED: MAALOX DPS30 ML GT (14:19)
[2017-05-03] MEDS ORDERED: AUGMENTIN400 MG/5 M GT (14:20)
[2017-06-10] MEDS ORDERED: DUONEB DPS3 ML IH (19:35)
[2017-06-10] MEDS ORDERED: CORDARONE DPS200 MG PO (19:35)
[2017-06-10] MEDS ORDERED: CELEXA DPS20 MG PO (19:35)
[2017-06-10] MEDS ORDERED: PEPCID DPS20 MG PO (19:36)
[2017-06-10] MEDS ORDERED: GABAPENTIN250 MG/5 M PO (19:36)
[2017-06-10] MEDS ORDERED: ROBITUSSIN100 MG/5 M PO (19:37)
[2017-06-10] MEDS ORDERED: LIDOCAINE VISCO15 ML PO (19:37)
[2017-06-10] MEDS ORDERED: HYDROPHOR OINT450 GM TP (19:37)
[2017-06-10] MEDS ORDERED: ROXICODONE5 MG/5 ML PO (19:38)
[2017-06-10] MEDS ORDERED: TYLENOL DPS325 MG PO (19:38)
[2017-06-10] MEDS ORDERED: COLACE-DPS100 MG PO (19:38)
[2017-06-10] MEDS ORDERED: MAALOX DPS30 ML PO (19:38)
[2017-06-10] MEDS ORDERED: DURAGESIC1 EAC4 TD (19:39)
[2017-06-10] MEDS ORDERED: PROVENTIL HFA6.7 GM IH (19:40)
[2017-06-10] MEDS ORDERED: [UNRECOGNIZED DRUG - OTHER] PO (19:40)
[2017-06-10] MEDS ORDERED: VIBRAMYCIN-DPS100 M1 PO (19:41)
[2017-06-10] MEDS ORDERED: DELTASONE DPS5 MG PO (19:44)
[2017-06-10] MEDS ORDERED: [UNRECOGNIZED DRUG - OTHER] TP (19:45)
[2017-07-18] MEDS ORDERED: PROAIR HFA8.5 GM IH (19:12)
[2017-07-18] MEDS ORDERED: ROXICODONE5 MG/5 ML PO (19:12)
[2017-07-18] MEDS ORDERED: ROBAFEN100 MG/5 M PO (19:12)
[2017-07-18] MEDS ORDERED: VITAMIN D1000 UNI1 PO (19:13)
[2017-07-18] MEDS ORDERED: AMIODARONE HCL100 MG PO (19:13)
[2017-07-18] MEDS ORDERED: CELEXA DPS20 MG PO (19:13)
[2017-07-18] MEDS ORDERED: CLARITIN DPS10 MG PO (19:13)
[2017-07-18] MEDS ORDERED: GABAPENTIN250 MG/5 M PO (19:13)
[2017-07-18] MEDS ORDERED: PEPCID DPS20 MG PO (19:14)
[2017-07-18] MEDS ORDERED: DURAGESIC1 EAC3 TD (19:15)
[2017-07-18] MEDS ORDERED: COLACE-DPS100 MG PO (19:15)
[2017-07-18] MEDS ORDERED: DUONEB DPS3 ML IH (19:15)
[2017-07-18] MEDS ORDERED: CIPRO DPS500 MG PO (19:17)
[2017-07-18] MEDS ORDERED: DELTASONE DPS20 MG PO (19:17)
[2017-07-18] MEDS ORDERED: PROVENTIL2.5 MG/3 M IH (19:18)
[2017-07-18] MEDS ORDERED: TYLENOL DPS325 MG PO (19:18)
[2017-07-18] MEDS ORDERED: ACETYLCYST200 MG/1 M IH (19:20)
== END 2017-01-29 10:33 | disposition home or self-care (01) | DRG 945 ==
LOC: 6IRU 12:20
PROVIDERS: ADMIT Physical Medicine & Rehabilitation
PROC: F06ZDZZ Swallowing Dysfunction Treatment (ICD-10-PCS; principal; 2017-01-20)
PROC: F07Z9FZ Gait Training/Functional Ambulation Treatment using Assistive, Adaptive, Supportive or Protective Equipment (ICD-10-PCS; principal; 2017-01-20)
PROC: F08Z1FZ Dressing Techniques Treatment using Assistive, Adaptive, Supportive or Protective Equipment (ICD-10-PCS; principal; 2017-01-20)
PROC: F08Z2FZ Grooming/Personal Hygiene Treatment using Assistive, Adaptive, Supportive or Protective Equipment (ICD-10-PCS; principal; 2017-01-20)
PROC: F08Z0FZ Bathing/Showering Techniques Treatment using Assistive, Adaptive, Supportive or Protective Equipment (ICD-10-PCS; principal; 2017-01-20)
PROC: F07Z5FZ Bed Mobility Treatment using Assistive, Adaptive, Supportive or Protective Equipment (ICD-10-PCS; principal; 2017-01-20)
DX: R53.81 Other malaise (principal); K22.6 Gastro-esophageal laceration-hemorrhage syndrome; A04.7 Enterocolitis due to Clostridium difficile; E46 Unspecified protein-calorie malnutrition; E83.42 Hypomagnesemia; C01 Malignant neoplasm of base of tongue; R13.10 Dysphagia, unspecified; K26.9 Duodenal ulcer, unspecified as acute or chronic, without hemorrhage or perforation; D62 Acute posthemorrhagic anemia; D50.9 Iron deficiency anemia, unspecified; R68.84 Jaw pain; E55.9 Vitamin D deficiency, unspecified; Z68.31 Body mass index [BMI] 31.0-31.9, adult; C76.0 Malignant neoplasm of head, face and neck; K21.0 Gastro-esophageal reflux disease with esophagitis; M62.81 Muscle weakness (generalized); K44.9 Diaphragmatic hernia without obstruction or gangrene; R26.2 Difficulty in walking, not elsewhere classified; I10 Essential (primary) hypertension; J44.9 Chronic obstructive pulmonary disease, unspecified; F32.9 Major depressive disorder, single episode, unspecified; Z87.891 Personal history of nicotine dependence; Z93.1 Gastrostomy status

== ENCOUNTER 2017-03-01 10:27 | Emergency (ER) | payer MEDICAID ==
[~2017-03-01 10:27] MED LIST: ANBESOL TP; ANORO ELLIPTA 62.1 - IH; ASCORBIC ACID500 MG PO; CELEXA DPS20 MG PO; FEOSOL-DPS325 MG PO; LOPRESSOR DPS50 MG PO; NEURONTIN DPS600 MG PO; NICODERM CQ1 EAC1 TP; OXY IR DPS5 MG PO; PROTONIX40 MG PO; PROVENTIL HFA6.7 GM IH; SENOKOT S1 TAB PO; SPORTS CREAM85 GM TP; VITAMIN D31000 UNIT PO; VITAMIN D50000 UNIT PO
--- NOTE | 2017-03-07 10:31 | ER ---
ADMIT: 03/01/2017 RM/LOC: ER [facility] MR#: [id number] [address] [address] IMANSINAI Idalmis [address] [place] [address] Emergency Room Report SEX: F AGE: 61 : 1955 DATE: 03/01/2017 ADDENDUM: A 61-year-old white female with known head and neck cancer coming in after slipping and falling and hitting her head. She has a hematoma on, a very small lac that we do not have to do anything with and then CT scan was negative. She is discharged with instructions to follow up with her oncologist as directed and then use ice and Tylenol for pain. Recheck if condition changes. Valdez Allred MD/ manjinder JOB #: [id number] CC: Valdez Allred MD, Attending Physician Kelsie James MD, Family Physician
[2017-04-20] MEDS ORDERED: VITAMIN D1000 UNI1 GT (14:34)
[2017-04-20] MEDS ORDERED: DELTASONE DPS10 MG GT (14:35)
[2017-04-20] MEDS ORDERED: OXY IR DPS5 MG GT (14:35)
[2017-05-03] MEDS ORDERED: CORDARONE DPS200 MG GT (14:13)
[2017-05-03] MEDS ORDERED: TYLENOL DPS325 MG GT (14:14)
[2017-05-03] MEDS ORDERED: DUONEB DPS3 ML IH (14:15)
[2017-05-03] MEDS ORDERED: NEURONTIN250 MG/5 M GT (14:15)
[2017-05-03] MEDS ORDERED: CELEXA DPS20 MG GT (14:15)
[2017-05-03] MEDS ORDERED: ROXICODONE5 MG/5 ML GT (14:16)
[2017-05-03] MEDS ORDERED: MUCOMYST 20% IH (14:16)
[2017-05-03] MEDS ORDERED: PEPCID DPS20 MG GT (14:16)
[2017-05-03] MEDS ORDERED: ROBITUSSIN200 MG/10 GT (14:17)
[2017-05-03] MEDS ORDERED: DELTASONE DPS5 MG GT (14:17)
[2017-05-03] MEDS ORDERED: LIDOCAINE VISCO15 ML PO (14:18)
[2017-05-03] MEDS ORDERED: HYDROPHOR OINT450 GM TP (14:18)
[2017-05-03] MEDS ORDERED: COLACE-DPS100 MG GT (14:19)
[2017-05-03] MEDS ORDERED: MAALOX DPS30 ML GT (14:19)
[2017-05-03] MEDS ORDERED: AUGMENTIN400 MG/5 M GT (14:20)
[2017-06-10] MEDS ORDERED: CORDARONE DPS200 MG PO (19:35)
[2017-06-10] MEDS ORDERED: CELEXA DPS20 MG PO (19:35)
[2017-06-10] MEDS ORDERED: DUONEB DPS3 ML IH (19:35)
[2017-06-10] MEDS ORDERED: GABAPENTIN250 MG/5 M PO (19:36)
[2017-06-10] MEDS ORDERED: PEPCID DPS20 MG PO (19:36)
[2017-06-10] MEDS ORDERED: HYDROPHOR OINT450 GM TP (19:37)
[2017-06-10] MEDS ORDERED: LIDOCAINE VISCO15 ML PO (19:37)
[2017-06-10] MEDS ORDERED: ROBITUSSIN100 MG/5 M PO (19:37)
[2017-06-10] MEDS ORDERED: ROXICODONE5 MG/5 ML PO (19:38)
[2017-06-10] MEDS ORDERED: TYLENOL DPS325 MG PO (19:38)
[2017-06-10] MEDS ORDERED: COLACE-DPS100 MG PO (19:38)
[2017-06-10] MEDS ORDERED: MAALOX DPS30 ML PO (19:38)
[2017-06-10] MEDS ORDERED: DURAGESIC1 EAC4 TD (19:39)
[2017-06-10] MEDS ORDERED: [UNRECOGNIZED DRUG - OTHER] PO (19:40)
[2017-06-10] MEDS ORDERED: PROVENTIL HFA6.7 GM IH (19:40)
[2017-06-10] MEDS ORDERED: VIBRAMYCIN-DPS100 M1 PO (19:41)
[2017-06-10] MEDS ORDERED: DELTASONE DPS5 MG PO (19:44)
[2017-06-10] MEDS ORDERED: [UNRECOGNIZED DRUG - OTHER] TP (19:45)
[2017-07-18] MEDS ORDERED: ROXICODONE5 MG/5 ML PO (19:12)
[2017-07-18] MEDS ORDERED: ROBAFEN100 MG/5 M PO (19:12)
[2017-07-18] MEDS ORDERED: PROAIR HFA8.5 GM IH (19:12)
[2017-07-18] MEDS ORDERED: AMIODARONE HCL100 MG PO (19:13)
[2017-07-18] MEDS ORDERED: CELEXA DPS20 MG PO (19:13)
[2017-07-18] MEDS ORDERED: CLARITIN DPS10 MG PO (19:13)
[2017-07-18] MEDS ORDERED: GABAPENTIN250 MG/5 M PO (19:13)
[2017-07-18] MEDS ORDERED: VITAMIN D1000 UNI1 PO (19:13)
[2017-07-18] MEDS ORDERED: PEPCID DPS20 MG PO (19:14)
[2017-07-18] MEDS ORDERED: DURAGESIC1 EAC3 TD (19:15)
[2017-07-18] MEDS ORDERED: DUONEB DPS3 ML IH (19:15)
[2017-07-18] MEDS ORDERED: COLACE-DPS100 MG PO (19:15)
[2017-07-18] MEDS ORDERED: CIPRO DPS500 MG PO (19:17)
[2017-07-18] MEDS ORDERED: DELTASONE DPS20 MG PO (19:17)
[2017-07-18] MEDS ORDERED: TYLENOL DPS325 MG PO (19:18)
[2017-07-18] MEDS ORDERED: PROVENTIL2.5 MG/3 M IH (19:18)
[2017-07-18] MEDS ORDERED: ACETYLCYST200 MG/1 M IH (19:20)
== END 2017-03-01 12:19 | disposition home or self-care (01) ==
LOC: ER 10:27
DX: S00.03XA Contusion of scalp, initial encounter (principal); C76.0 Malignant neoplasm of head, face and neck; I10 Essential (primary) hypertension; Z79.899 Other long term (current) drug therapy; W18.00XA Striking against unspecified object with subsequent fall, initial encounter; Y92.009 Unspecified place in unspecified non-institutional (private) residence as the place of occurrence of the external cause

== ENCOUNTER 2017-03-13 13:02 | Inpatient (IN) | payer MEDICAID ==
[~2017-03-13] VITALS: Ht 160 cm; Wt 75.0 kg
--- NOTE | ~2017-03-13 | CO ---
ADMIT: 03/13/2017 RM/LOC: 303 [facility] MR#: [id number] [address] [address] SINAI VALERIO [address] [place] [address] Consultation SEX: F AGE: 61 : 1955 CORRECTION: 03/22/2017 1453 vdg DATE OF CONSULTATION: 03/19/2017 ATTENDING PHYSICIAN: Kelsie James CONSULTING PHYSICIAN: Terry Acosta MD CHIEF COMPLAINT: Fresh oral bleeding. HISTORY OF PRESENT ILLNESS: Mrs. Valerio is 61-year-old. She is admitted at this time in treatment of pneumonia and lower respiratory infection, requiring intubation and ventilation. She developed oral bleeding of fresh red blood. She has history of tonsillar cancer, and is presently undergoing chemoradiation. She has completed approximately 7 weeks of radiation and the first round of chemotherapy. During this hospitalization, she required anticoagulation therapy which has subsequently been discontinued and her pulmonary status concerning pneumonia is gradually improving with anticipation of extubation without need for tracheostomy. Examination with the patient in ICU bed shows endotracheal tube in position orally. There is old blood within the oral cavity, mixed with saliva and mucus, appears to arise right-sided, but there is no fresh blood at the time of this examination. Because of the endotracheal and orogastric tube in place, visualization of the oropharynx was inadequate for complete visualization but nasal exam and oral exam shows no evidence of active bleed. (I suspect the bleed related to her known oropharyngeal squamous cell carcinoma aggravated by presence of oral tubes and institution of anticoagulant therapy). No change in treatment needed at this time from the ENT standpoint. If bleeding recurs, then repeat exam will be carried out. Complete ENT exam can be accomplished following extubation. Terry Acosta MD/ manjinder JOB #: [id number] CC: Kelsie James, Attending Physician Kelsie James, Family Physician CORRECTION: 03/22/2017 1453 vd
--- NOTE | ~2017-03-13 | ECH ---
Transthoracic Echocardiography Report (TTE) Demographics Patient Name SINAI VALERIO Date of Study 03/14/2017 Patient Number [id number] Visit Number [id number] Date of 1955 Room Number 315 Accession Number [id number] Gender Female Age 61 year(s) Referring Jacob Jansen Catechist Анна Gonzales Physician Silvio NUNEZ [place] [facility] Sukhi Cary MD Physician Interpreting Yana Stokes MD Rf Engineer Physician Supervising Ordering Physician Sukhi Cary MD/LINDA NUNEZ Nurse Stress [employer] Teacher Conclusions Summary Technically good exam. The estimated left ventricular ejection fraction is 55-60%. The left atrium is moderately dilated by LA volume index measurement. The right atrium is mildly dilated. Mild tricuspid regurgitation by color Doppler. There is mild pulmonary hypertension. The pulmonary pressure (RVSP) is 43 mmHg. Procedure Type of Study TTE procedure:Echo Complete SF. Procedure Date Date: 03/14/2017 Start: 12:36 PM Technical Quality: Good visualization Indications:Supraventricular Tachycardia, Ventricular Tachycardia and Hypertension. Appropriate Use Criteria: 9 Height: 63 inches Weight: 157 pounds BSA: 1.74 m Rhythm: Sinus tachycardia HR: 107 bpm BP: 108/62 mmHg M-Mode/2D Measurements LV Diastolic Dimension: 4.43 cm LV Systolic Dimension: 3.07 cm LV Septum Diastolic: 0.93 cm LV PW Diastolic: 0.98 cm AO Root Dimension: 3 cm Cardiac Output: 6.17 l/min LA Dimension: 4.39 cm Cardiac Index: 3.55 l/min*m RV Diastolic Dimension: 4.6 cm LA volume index: 44 ml/m LVOT: 1.93 cm LVOT VTI: 19.73 cm RV Base: 4.1 cm LV Stroke volume: 57.69 ml RV Mid: 2.7 cm LV Stroke volume index: 33.16 ml/m TAPSE: 2.3 cm TDI-S': 15 cm/s Doppler Measurements AV Peak Velocity: 1.5 m/s MV Peak E-Wave: 1.07 m/s AV Peak Gradient: 9 mmHg MV Peak A-Wave: 1.02 m/s AV Mean Gradient: 4.75 mmHg MV E/A Ratio: 1.05 LVOT Peak Velocity: 1.04 m/s MV P1/2t: 61.3 msec AV Area (Continuity):2.29 cm MV Deceleration Time: 211.3 msec TR Velocity:3.15 m/s MV Area (PHT): 3.59 cm TR Gradient:39.69 mmHg PV Peak Velocity: 1.01 m/s Estimated RAP:3 mmHg PV Peak Gradient: 4.07 mmHg Estimated RVSP: 43 mmHg Estimated PASP: 42.69 mmHg E' Septal Velocity: 0.08 m/s A' Lateral Velocity: 0.1 m/s E' Lateral Velocity: 0.14 m/s RA Area: 18.2 cm Findings Left Ventricle Normal left ventricle size and function. Diastolic assessment reveals normal relaxation. Right Ventricle Normal right ventricle structure and function. Left Atrium The left atrium is moderately dilated by LA volume index measurement. Right Atrium The right atrium is mildly dilated. Mitral Valve Normal mitral valve structure and function. Mild mitral regurgitation by color Doppler. Aortic Valve Normal aortic valve structure and function. Tricuspid Valve Normal tricuspid valve structure and function. Mild tricuspid regurgitation by color Doppler. There is mild pulmonary hypertension. The pulmonary pressure (RVSP) is 43 mmHg. Pulmonic Valve Normal pulmonic valve structure and function. Trivial pulmonic valve regurgitation by color Doppler. Pericardial Effusion No evidence of pericardial effusion. Miscellaneous Visualized portions of the aortic root and ascending aorta appear normal in size. Pleural Effusion Pleural effusion present. Signature
--- NOTE | ~2017-03-13 | CO ---
ADMIT: 03/13/2017 RM/LOC: 303 [facility] MR#: [id number] [address] [address] SINAI VALERIO J [address] [place] [address] Consultation SEX: F AGE: 61 : 1955 DATE OF CONSULTATION: 03/22/2017 ATTENDING PHYSICIAN: Kelsie James CONSULTING PHYSICIAN: Terry Acosta MD Sinai was seen in followup today concerning recent consultation for bloody drainage from oropharynx. She had recurrence of bloody drainage. She had attempt at extubation. Her ventilation weaning parameters were adequate to allow extubation trial by Dr. Louie Juan. She, however, was unable to adequately ventilate and the efforts caused recurrence of pharyngeal bleed. Because of her respiratory distress and the oropharyngeal bleeding, tracheostomy has been recommended by Dr. Juan. I am in agreement with this medical approach to help relieve the tubes within the oropharynx, allow adequate examination of the oropharynx while maintaining adequate ventilation through the tracheostomy tube. Tracheostomy will be performed 03/23/2017. Terry cAosta MD/ manjinder JOB #: [id number] CC: Kelsie James, Attending Physician Kelsie James, Family Physician
--- NOTE | 2017-03-17 13:05 | CO ---
ADMIT: 03/13/2017 RM/LOC: 315 [facility] MR#: [id number] [address] [address] SINAI VALERIO J [address] [place] [address] Consultation SEX: F AGE: 61 : 1955 DATE OF CONSULTATION: 03/14/2017 ATTENDING PHYSICIAN: Kelsie James CONSULTING PHYSICIAN: Trenton Anguiano MD REASON FOR CONSULT: Sinus tachycardia. Lorna Masters RN, scribing for Dr. Trenton Anguiano. HISTORY OF PRESENT ILLNESS: Sinai is a 61-year-old female whom I have been asked to see in cardiac consultation by Dr. Miller for tachycardia. Sinai is currently intubated and sedated. I have obtained her history and recent story from her son and daughter who are in her room presently. Sinai was seen at [facility] prior to 2009, I do not have any current records. She has history of tonsil squamous cell cancer stage IV and has been undergoing chemotherapy and radiation for that, this year. First chemo was about 2-3 weeks ago and radiation started about 7 weeks ago with her last treatment on Tuesday of this previous week, 5 days a week. Her family has been helping her with her cares but apparently at the end of this week, her mom was with her and she started having some coughing on . Her mom was concerned that she was having issues with pneumonia but she reported that she was feeling okay. Tuesday, daughter was with her and helped her and by Tuesday, she was having extreme difficulty breathing and so she was brought into the hospital by EMS where she was noted to be hypoxic requiring BiPAP and ultimately intubation. She was having some higher heart rates, questionable SVT up to 200s. As early as this morning, heart rates are anywhere from 160s to 100s. Currently, her heart rate has been about 110. She is on amiodarone drip as well as receiving some IV digoxin for heart rate. Her blood pressure has been low. She recently had Levophed drip shut off. She is currently on severiano drip at 75 mcg/minute and vasopressin drip at 0.04 units a minute. Systolic blood pressure is anywhere from 90 to about 110. Her daughter states that she has not had any complaints of chest discomfort, palpitations, presyncope, or peripheral edema. Her main complaint is just shortness of breath. She receives her feedings through the feeding tube, primarily because of her neck swelling and swallowing issues. PAST MEDICAL HISTORY: Former tobacco use, quit this year after cancer diagnosis. Previous history of acute kidney injury in December. Tonsil cancer stage IV, squamous cell with chemo and radiation. COPD. Depression. History of encephalopathy in December, resolved. Anemia. Hypertension. History of C. diff. History of duodenal ulcer. History of Vanessa-Fitzgerald tear. History of sinus tachycardia in the past. Malnutrition. G-tube in for nutritional support. History of right chest port. ALLERGIES: NO KNOWN MEDICATION ALLERGIES. MEDICATIONS: Current medications include: 1. DuoNeb 3 q.4 hours. ADMIT: 03/13/2017 RM/LOC: 315 [facility] MR#: [id number] [address] [place] [id number] SINAI VALERIO [address] [place] [address] Consultation SEX: F AGE: 61 : 1955 2. Celexa 20, G-tube daily. 3. Neurontin 600 mg, G-tube 3 times a day. 4. Granix 480 mcg daily at 1800. 5. Lovenox 30 mg subcu daily. 6. Buminate 500 mg p.r.n. elevated systolic blood pressure. 7. Amiodarone IV per protocol. 8. Fentanyl drip and Versed drip for sedation. 9. Severiano-Synephrine 75 mcg/minute. 10.Pepcid 20 mg IV daily. 11.Vasopressin 0.04 units/minute. 12.Sodium bicarb IV. 13.Vancomycin IV. FAMILY HISTORY: Noncontributory. SOCIAL HISTORY: Sinai is single. She smoked a pack a day for many years, quit this year. Four beers a day. Son and daughter help with her care as well as her mother. REVIEW OF SYSTEMS: Unobtainable due to the patient's intubation and sedation. PHYSICAL EXAMINATION: VITAL SIGNS: Blood pressure 108/62, heart rate 170 to 110, respirations 24, temperature 99.9, and oxygenation 91% on O2. GENERAL: Intubated and sedated. SKIN: [place], warm and dry. EYES: Sclerae clear. No xanthelasmas. ENT: Oral mucosa is pink and moist. No jugular venous distention or carotid bruits. ET tube in place. HEART: Regular rate and rhythm, tachycardic. LUNGS: Breath sounds distant. ABDOMEN: Soft and nontender. MUSCULOSKELETAL: Gait is normal. EXTREMITIES: Peripheral pulses palpable. No clubbing, cyanosis or edema. NEURO: Unable to answer. DIAGNOSTIC STUDIES: Chest x-ray on 03/14 showed bilateral pulmonary consolidation, left greater than right. Positive blood cultures, Strep pneumonia. Sodium 136, potassium 2.7, BUN 41, creatinine 1.9, glucose 127, magnesium 2.2, AST 121, ALT 104. INR 1.35. White blood cell count 1.2, hemoglobin 9.5, hematocrit 28.9, and platelets 460. CK 41, MB 1.2, troponin 0.447 down from 0.669 on first set. ASSESSMENT/PLAN: 1. Tachycardia appears to be supraventricular tachycardia last night, sinus ADMIT: 03/13/2017 RM/LOC: 315 [facility] MR#: [id number] [facility] [address] [address] SINAI VALERIO [address], [place] [address] Consultation SEX: F AGE: 61 : 1955 tachycardia now. She is on amiodarone. I would recommend continuing IV amiodarone and check echocardiogram for wall motion abnormalities, valvular abnormalities, or decreased ejection fraction. I will also check TSH and free T4 with EKG now and in a.m. 2. Indeterminate troponin secondary to demand ischemia. 3. Respiratory failure. 4. Squamous cell throat cancer stage IV. I will continue follow her closely. "I have read and agree with the documentation that has been completed regarding this visit. By signing this record, I attest that the documentation was completed in my physical presence and is an accurate record of the encounter." Lorna Masters RN / Trenton Anguiano MD / manjinder JOB #: [id number] CC: Kelsie James, Attending Physician Kelsie James, Family Physician
--- NOTE | 2017-03-21 18:15 | OR ---
ADMIT: 03/13/2017 RM/LOC: 315 [facility] MR#: [id number] [address] [address] IMAN SINAI Idalmis [address] [place] [address] Operative/Delivery Room Report SEX: F AGE: 61 : 1955 SURGERY DATE: 03/17/2017 SURGEON: Josiah Strange MD PROCEDURE PERFORMED: Flexible fiberoptic bronchoscopy. PREPROCEDURE DIAGNOSIS: Respiratory failure with pulmonary infiltrates and worsening white blood count. POSTPROCEDURE DIAGNOSES: 1. Excessive purulent secretions, left greater than right with some mucus plugging. 2. No endobronchial lesions. SPECIMEN OBTAINED: 1. Mixed bronch washing obtained. 2. Bronchoalveolar lavage performed via left upper lobe. This is a 61-year-old female with respiratory failure, pneumonia, and worsening white blood count. X-ray is worsened. Flexible fiberoptic bronchoscopy is indicated. Informed consent was obtained from the family and they understand risks and benefits including, but not limited to those listed on the consent form and agreed to proceed. The patient is currently sedated on the ventilator. Flexible fiberoptic bronchoscopy is performed via existing endotracheal tube. Cardiac rhythm, blood pressure, and oxygen saturations are monitored throughout the procedure. Visualized portion of the trachea is normal. Suly is sharp and mobile. Examination of tracheobronchial tree (RV 1 through 10 and LV 1 through 10) reveals significant amount of purulent secretions present. This is worse on the left than on the right. There is some mucus plugging involving the left lower lobe airways as well. This is all cleared with therapeutic suction and saline washings. A mixed bronch washing was obtained in this fashion. Subsequent examination in the segmental level reveals no evidence of endobronchial lesion. The right tracheobronchial tree also has some exudative secretions, but not nearly as significant as the left. This is all cleared. No ADMIT: 03/13/2017 RM/LOC: 315 [facility] MR#: [id number] [address] [address] SINAI VALERIO [address] [place] [address] Operative/Delivery Room Report SEX: F AGE: 61 : 1955 endobronchial lesion is identified. A bronchoalveolar lavage is performed via LV 3 (left upper lobe). The patient tolerated the procedure well. There are no immediate complications. Cardiac rhythm, blood pressure, and oxygen saturations remained stable. The above specimens were sent for appropriate cytology and microbiologic studies. Josiah Strange MD/ manjinder JOB #: [id number] CC: Kelsie James, Attending Physician Kelsie James, Family Physician MD Bruce Win MD
--- NOTE | 2017-03-26 08:19 | ER ---
ADMIT: 03/13/2017 RM/LOC: 315 [facility] MR#: [id number] [address] [address] SINAI VALERIO [address] [place] [address] Emergency Room Report SEX: F AGE: 61 : 1955 DATE: 03/13/2017 ADDENDUM: A 61-year-old white female with oropharyngeal cancer, unknown stage or if it is metastatic coming in with shortness of breath. She does have COPD on top of that. Hypoxic, brought in by ambulance. We put her on BiPAP fairly soon after she got here. White count 0.5 and hemoglobin 10.5. Creatinine 2.5. SGOT 211, SGPT 130. Troponin slightly up at 0.669. Lactate is 2.9. Blood gas on 15 L; 7.3 pH, pCO2 of 37, PO2 of 67. Chest x-ray, she has a left lobe pneumonia, more upper, cannot rule out metastatic disease at this time. I had put her on Zosyn. At this time, we spoke with Dr. Isbell who is covering Dr. James. She has also gotten a DuoNeb treatment as well. CONDITION ON DISCHARGE: Critical. Valdez Allred MD/ modl JOB #: [id number] CC: Kelsie James MD, Attending Physician Kelsie James MD, Family Physician
--- NOTE | 2017-03-29 07:43 | OR ---
ADMIT: 03/13/2017 RM/LOC: 303 [facility] MR#: [id number] [address] [address] SINAI VALERIO Idalmis [address] [place] [address] Operative/Delivery Room Report SEX: F AGE: 61 : 1955 SURGERY DATE: 03/24/2017 SURGEON: Terry Acosta MD PREOPERATIVE DIAGNOSIS: Respiratory insufficiency, endotracheal tube dependent with prolonged intubation. POSTOPERATIVE DIAGNOSIS: Respiratory insufficiency, endotracheal tube dependent with prolonged intubation. OPERATION: Tracheostomy. ANESTHESIA: General. COMPLICATIONS: None. TUBE: #8 fenestrated Shiley cuffed. PROCEDURE IN DETAIL: With the patient in the supine position in her ICU hospital bed with the neck slightly extended, the anterior neck was prepped with ChloraPrep, allowed 3 minutes to dry. The patient was draped sterilely. An incision was planned in the supramanubrial region. The tissues were inflated with Xylocaine with epinephrine 1:100,000, after good vasoconstriction. An incision was made with the Bovie cautery of approximately 2 to 2-1/2 cm. The dissection was continued horizontally to the platysmal layer, and then vertically the strap muscles with blunt dissection. During the dissection, small vessels were encountered and treated with electrocautery. Dissection was continued medially. The cricoid bone was identified by palpation. The trachea was identified by palpation and exposed by blunt dissection. The anterior tracheal wall was entered with a right angle hook and the trachea secured. An incision was made in an inner tracheal ADMIT: 03/13/2017 RM/LOC: 303 [facility] MR#: [id number] [address] [address] SINAI VALERIO [address] [place] [address] Operative/Delivery Room Report SEX: F AGE: 61 : 1955 space below the 2nd tracheal cartilage and the incision extended laterally with blunt dissection using scissors. There was mucopurulence within the trachea, cleaned with suctioning. The opening was enlarged to admit a #8 Shiley tracheostomy tube. The endotracheal tube was then retracted and the #8 Shiley tube placed in the trachea without difficulty. Ventilation was then continued through the tracheostomy tube and there was good ventilation, good exchange, there was no bleeding from the trachea. During the procedure, she lost approximately 5 to 10 mL of blood, but good hemostasis following procedure. Right trach dressing was applied and the trach tube was taped into position with trach tapes, ventilation continued directly through the tracheostomy tube. She tolerated the procedure well and emerged from the anesthesia while in intensive care hospital bed. Terry Acosta MD/ manjinder JOB #: [id number] CC: Kelsie James, Attending Physician Kelsie James, Family Physician
--- NOTE | 2017-03-30 16:25 | CO ---
ADMIT: 03/13/2017 RM/LOC: 303 [facility] MR#: [id number] [address] [address] SINAI VALERIO J [address] [place] [address] Consultation SEX: F AGE: 61 : 1955 DATE OF CONSULTATION: 03/18/2017 ATTENDING PHYSICIAN: Kelsie James CONSULTING PHYSICIAN: Panfilo West MD REASON FOR CONSULTATION: Flex sigmoidoscopy to check for severity of C. diff colitis. HISTORY OF PRESENT ILLNESS: Sinai is a 61-year-old female, who unfortunately has been diagnosed with stage IV squamous cell carcinoma of the tonsils and tongue recently who has been admitted to the Intensive Care Unit for increased shortness of breath, cough, and ongoing hypoxemia. She is currently being treated for pneumonia. Apparently, the patient has been dealing with ongoing C. difficile infection. She initially had problems with this during her last admission, was approximately back in December of this year. Currently she is intubated. Stool is positive for current C. diff. Throughout her stay, it was noted that her white count continued to increase and so we have been consulted to assess for severity of C. diff colitis. PAST MEDICAL HISTORY: 1. 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 2. C. difficile colitis. 3. Depression. 4. COPD. PAST SURGICAL HISTORY: 1. Recent EGD performed in December of this year revealed tonsillar cancer, duodenal ulcers, Vanessa-Fitzgerald tear, hiatal hernia, and distal esophagitis. 2. Resection for carcinoma of the oropharynx. 3. G-tube placement. ALLERGIES: NO KNOWN DRUG ALLERGIES. MEDICATIONS: Well documented in chart. FAMILY HISTORY: Noncontributory. SOCIAL HISTORY: The patient is a former alcohol and tobacco user. REVIEW OF SYSTEMS: Unobtainable due to the patient's current condition. PHYSICAL EXAMINATION: GENERAL: The patient is intubated and hard to arouse. She does respond to painful stimuli. HEENT: Head is normocephalic and atraumatic. Eyes are closed. Pinnae free of deformities. Nose, midline. No tracheal deviation. NECK: Supple. SKIN: Negative for jaundice, clubbing, edema, pallor, or cyanosis. ADMIT: 03/13/2017 RM/LOC: 303 [facility] MR#: [id number] [address] [address] SINAI VALERIO [address] [place] [address] Consultation SEX: F AGE: 61 : 1955 LUNGS: The patient intubated. HEART: Distal pulses intact. Tachycardic. ABDOMEN: Soft, nondistended. Generalized tenderness as noted with face grimacing. MUSCULOSKELETAL: Passive range of motion preserved in all 4 extremities. LABORATORY DATA: White blood cell count 42. ASSESSMENT: Clostridium difficile colitis, confirmation of severity. PLAN: I will plan to have the patient proceed with sigmoidoscopy to further assess for severity of C. diff colitis. I will reassess with Dr. West's schedule to see when we can get this done and go from there. Once I have schedule in place, I will discuss the risks with flex sigmoidoscopy with the patient's POA and hopefully get this done soon. Thank you for the consultation. CRYSTAL Daigle / Panfilo West MD / manjinder JOB #: [id number] CC: Kelsie James, Attending Physician Kelsie James, Family Physician
--- NOTE | 2017-03-31 12:10 | HP ---
ADMIT: 03/13/2017 RM/LOC: 315 [facility] MR#: [id number] [address] [address] SINAI MOON [address] [place] [address] History and Physical SEX: F AGE: 61 : 1955 DATE OF SERVICE: CHIEF COMPLAINT: Shortness of breath and a fever. HISTORY OF PRESENT ILLNESS: Ms. Moon is a very pleasant, 61-year-old female. She has a past medical history significant for the unfortunate history of her recent diagnosis of squamous cell carcinoma of the tonsil with possible metastasis that is kind of unclear to me. She is status post chemo on Tuesday, and reports that since then she has been doing okay. She reports she has been having some diarrhea, but she did have a fever, cough productive of some phlegm, and increased shortness of breath. She came into the ER by squad, and was noted to be profoundly hypoxemic and actually required BiPAP. She otherwise reports that she has been having some diarrhea. Of note, she was admitted back in December, and at that time had been diagnosed with acute renal failure, metabolic acidosis, dehydration, hypotension at that time. Otherwise, it is difficult to take history as she does have the BiPAP mask on, but she really does not have any other complaints at this time. PAST MEDICAL HISTORY: Significant. 1. Hypertension. 2. Squamous cell carcinoma of the tonsil stage IV apparently. 3. Depression. 4. History of COPD. 5. History of acute renal failure in December, resolved. 6. History of encephalopathy in December, resolved. 7. Anemia. 8. History of C. diff colitis. 9. History of duodenal ulcer. 10.History of Vanessa-Fitzgerald tear. 11.History of sinus tachycardia. 12.History of protein-calorie malnutrition. 13.History of G-tube in for nutrition. 14.History of right chest port. ALLERGIES: NO KNOWN MEDICAL ALLERGIES. MEDICATIONS: Her home medications are: 1. Ranitidine 150 p.o. b.i.d. 2. DuoNeb 4 times daily as needed. 3. Tylenol 325 p.o. q.4 hours as needed. 4. Celexa 20 mg p.o. daily. 5. Vitamin D 50,000 units once a week. 6. Gabapentin 600 mg p.o. three times a day. 7. Metoprolol 25 mg p.o. b.i.d. 8. Oxycodone 5 mg 1-2 every 4 hours as needed. 9. Proventil 2 puffs four times daily as needed. 10.Anoro everyday. SOCIAL HISTORY: She is single. She has smoked a pack a day for many years. ADMIT: 03/13/2017 RM/LOC: 315 [facility] MR#: [id number] [address] [address] SINAI MOON [address] [place] [address] History and Physical SEX: F AGE: 61 : 1955 Drinks four beers a day. Did quit smoking here recently. She has a son and a daughter. Her son is her medical [id number]. FAMILY HISTORY: Positive for macular degeneration in her mother. No diabetes, possibly hypertension. REVIEW OF SYSTEMS: Difficult to obtain, but otherwise is essentially negative. PHYSICAL EXAMINATION: GENERAL: She is alert. 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 She is in somewhat respiratory distress. HEENT: Pupils are equal, round, reactive. Oropharynx is very dry mucous membranes. NECK: Supple. HEART: Tachycardic rate with a regular rhythm. LUNGS: Really diminished breath sounds on the left. ABDOMEN: Soft. Bowel sounds are present. She has a G-tube that is clean, dry, and intact. EXTREMITIES: Have no evidence of edema. ASSESSMENT AND PLAN: 1. Hypoxemia profound at this time. Her chest x-ray shows a very significant left upper and lower lobe pneumonia as well as some right- sided infiltrate. 2. She is requiring high oxygen requirements on her BiPAP. We will go ahead and repeat an ABG to make sure we are oxygenating efficiently. With her neutropenia, we will dose her with Maxipime and Vanco. We will also plan to get a sputum Gram stain, as well as monitor her lactic acid, procalcitonin and give her fluids. 3. History of recent clostridium difficile and some ongoing diarrhea. We will check a clostridium difficile. ADMIT: 03/13/2017 RM/LOC: 315 [facility] MR#: [id number] [address] [place] [address] SINAI MOON J [address] [place] [address] History and Physical SEX: F AGE: 61 : 1955 4. History of Chronic obstructive pulmonary disease. Continue her DuoNeb q.4 hours. 5. Hypomagnesemia. We will replace. 6. Acute renal failure. We will go ahead and check her spot urine lytes. We will go ahead and give her lots of IV fluids and may need to consult Nephrology. 7. Chronic pain. Continue her gabapentin and oxycodone. 8. Hypertension. We will hold her metoprolol at this time. 9. Gastroesophageal reflux disease with duodenal ulcer. We will continue her ranitidine. 10.Code status: I did discuss it with the patient and it sounds as if she would want everything done at this time. Ghazala Isbell MD/ manjinder JOB #: [id number] CC: Kelsie James, Attending Physician Kelsie James, Family Physician
--- NOTE | 2017-04-04 08:38 | CO ---
ADMIT: 03/13/2017 RM/LOC: 303 [facility] MR#: [id number] [address] [address] SINAI VALERIO [address] [place] [id number] Consultation SEX: F AGE: 61 : 1955 DATE OF CONSULTATION: 03/16/2017 ATTENDING PHYSICIAN: Kelsie James CONSULTING PHYSICIAN: Bruce Daniels MD REASON FOR CONSULTATION: Prognosis. HISTORY OF PRESENT ILLNESS: Ms. 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 She began her treatment with radiation therapy and received her first dose of chemotherapy on 02/22/2017. She is known to have bilateral neck disease, which makes this a stage JENNIFER head and neck cancer, but is still considered to be curable. HPV staining was negative signifying a cancer secondary to smoking and/or alcohol exposure most likely. She does have a past medical history significant for COPD and presented to the emergency room approximately 3 days ago with complaints of fever, productive cough, and increased shortness of breath. She was quite hypoxic and was immediately started on BiPAP. Within the first 24 hours of hospitalization, she did decompensate and required intubation. She is currently intubated and sedated and thus unable to provide any recent history. I did speak with the SYSTEM PROGRAMMER as to her clinical course for updates, and the patient's daughter, mother, and sister were all present for the encounter. There has been discovery of Streptococcus pneumoniae both on sputum and blood samples, and she is on appropriate antibiotic coverage. She is making tenuous progress weaning off her FiO2 currently at 45% with PEEP setting at 12. The patient's family was wanting to know overall prognosis of her cancer in light of the current setback. PAST MEDICAL HISTORY: 1. Hypertension. 2. 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 3. Depression. 4. COPD. 5. Recent hospitalization in December for acute renal failure. 6. History of C. diff. ALLERGIES: NO KNOWN MEDICAL ALLERGIES. MEDICATIONS: 1. Ranitidine 150 mg b.i.d. 2. Celexa 20 mg daily. 3. Vitamin D 50,000 units weekly. 4. Gabapentin 600 mg t.i.d. 5. Oxycodone 5 mg 1 to 2 q.4 hours p.r.n. 6. Proventil 2 puffs p.r.n. 7. Metoprolol 25 mg b.i.d. SOCIAL HISTORY: The patient has a long-term significant other, but is ADMIT: 03/13/2017 RM/LOC: 303 [facility] MR#: [id number] 2620 [place] [id number] SINAI VALERIO [address] [place] [address] Consultation SEX: F AGE: 61 : 1955 unmarried. She has greater than 50-pack year smoking history and was in the habit of drinking approximately 4 beers daily, but has since quit during therapy. Her son is the medical power of privacy attorney. FAMILY HISTORY: Significant for no known cancers in her family. REVIEW OF SYSTEMS: Unable to obtain review of systems as the patient is currently intubated and sedated. PHYSICAL EXAMINATION: VITAL SIGNS: Temperature of 100.1, pulse 131, respiratory rate 29, blood pressure 100/56, saturating 94% on 45% FiO2, and PEEP of 12 ventilator settings. GENERAL: This is an intubated and sedated adult female, thus lying in the ICU bed, who is currently sedated, unable to respond to my voice or commands, does withdraw from pain. HEENT: Pupils are equal, round, and reactive to light. Sclerae are nonicteric. ET tube in mouth prevents exam. NECK: Trachea is midline. There is a tender right submandibular lymph node somewhat softer than prior to therapy measuring approximately 2 cm. HEART: Tachycardic and irregular with no obvious murmurs. LUNGS: Decreased breath sounds bilateral lung bases. Breathing well with ventilator. ABDOMEN: Soft and nondistended. Bowel sounds are positive. EXTREMITIES: Edema in bilateral upper and lower extremities, equal bilaterally. No clubbing. No cyanosis. SKIN: No obvious rashes or pigmented lesions of concern. NEUROLOGIC: Withdraws to pain. Will not follow commands due to sedation. LABORATORY AND RADIOLOGY: WBC 4.1, hemoglobin 7.8, and platelets 311. Lactic acid 2.9. Sodium 133, potassium 2.7, bicarb 22, BUN 37, creatinine 1.4, and calcium 7.4. C. diff gene detected, although not currently having diarrhea. Procalcitonin 29.87. Chest x-ray portable, impression stable pulmonary consolidation bilaterally with left worse than right, stable from prior day. IMPRESSION AND RECOMMENDATIONS: A 61-year-old female with stage JENNIFER tonsillar squamous cell carcinoma. Head and neck squamous cell carcinoma. The patient's underlying disease considered to be stage JENNIFER, but is still curable with combination chemo and radiation therapy. She has received 10 of 35 planned doses of radiation so is approximately [address] She also has received 1 dose of a planned 3 doses of single agent cisplatin to enhance the killing efficacy of the radiation therapy. She had been tolerating the chemotherapy fairly well with her biggest complaint being fatigue and pain in the cancer region around her jaw and base of tongue. She appears to have developed a severe infection likely secondary to weakened immune system secondary to chemotherapy. Her current clinical situation is critical, although recovery is certainly ADMIT: 03/13/2017 RM/LOC: 303 [facility] MR#: [id number] [address] [address] SINAI VALERIO [address] [place] [id number] Consultation SEX: F AGE: 61 : 1955 possible with a sensitive organism identified as the cause of her pneumonia. Her recovery, however, will take a number of weeks in order for her to resume chemoradiation therapy. I would estimate 3 to 4 weeks necessary prior to restarting therapy if the patient was still willing to proceed. This delay will certainly compromise our chance of cure, although to what extent is difficult to say. From the outset if everything had gone smooth we would anticipate approximately 40% chance of long-term remission, i.e., cure. This number is now less, but unquantifiable. I encouraged the family including the son, who is most concerned with overall prognosis to take it day by day and provide encouragement, but certainly understand if things fail to progress and she is not able to get off the ventilator in reasonable time approaching the situation from a palliative angle would not be unreasonable. All questions from the patient's family including mother, daughter, and sister as well as the son over the phone were addressed to their apparent satisfaction. I will be happy to provide further oncology inside if needed, and we will continue to monitor the patient's progress from a distance. Thank you for this interesting consultation. Please call with any further questions. Total time spent 60 minutes. Bruce Daniels MD/ manjinder JOB #: [id number] CC: Kelsei James, Attending Physician Kelsie James, Family Physician
[2017-04-20] MEDS ORDERED: VITAMIN D1000 UNI1 GT (14:34)
[2017-04-20] MEDS ORDERED: OXY IR DPS5 MG GT (14:35)
[2017-04-20] MEDS ORDERED: DELTASONE DPS10 MG GT (14:35)
[2017-05-03] MEDS ORDERED: CORDARONE DPS200 MG GT (14:13)
[2017-05-03] MEDS ORDERED: TYLENOL DPS325 MG GT (14:14)
[2017-05-03] MEDS ORDERED: NEURONTIN250 MG/5 M GT (14:15)
[2017-05-03] MEDS ORDERED: DUONEB DPS3 ML IH (14:15)
[2017-05-03] MEDS ORDERED: CELEXA DPS20 MG GT (14:15)
[2017-05-03] MEDS ORDERED: PEPCID DPS20 MG GT (14:16)
[2017-05-03] MEDS ORDERED: ROXICODONE5 MG/5 ML GT (14:16)
[2017-05-03] MEDS ORDERED: MUCOMYST 20% IH (14:16)
[2017-05-03] MEDS ORDERED: DELTASONE DPS5 MG GT (14:17)
[2017-05-03] MEDS ORDERED: ROBITUSSIN200 MG/10 GT (14:17)
[2017-05-03] MEDS ORDERED: HYDROPHOR OINT450 GM TP (14:18)
[2017-05-03] MEDS ORDERED: LIDOCAINE VISCO15 ML PO (14:18)
[2017-05-03] MEDS ORDERED: MAALOX DPS30 ML GT (14:19)
[2017-05-03] MEDS ORDERED: COLACE-DPS100 MG GT (14:19)
[2017-05-03] MEDS ORDERED: AUGMENTIN400 MG/5 M GT (14:20)
--- NOTE | 2017-05-08 22:55 | DS ---
ADMIT: 03/13/2017 RM/LOC: 418 [facility] MR#: [id number] [address] [address] SINAI VALERIO [address] [place] [address] Discharge Summary SEX: F AGE: 61 : 1955 ADMISSION DATE: 03/13/2017 DISCHARGE DATE: 03/30/2017 DIAGNOSES: 1. Streptococcal pneumonia with sepsis. 2. Septic shock. 3. Neutropenic fever. 4. Tonsillar cancer. 5. Hypoxemia. 6. Acute renal failure. 7. COPD. 8. Hypotension-transient. 9. Metabolic acidosis with increased lactic acid. 10.SVT (supraventricular tachycardia) versus ventricular tachycardia due to Levophed and clinical situation. 11.Malnutrition, on tube feedings. 12.Hypokalemia. 13.Hypomagnesemia. 14.C (clostridium) Difficile colitis. 15.Edema. 16.Low TSH (thyroid-stimulating hormone). 17.Hyperglycemia. 18.Mucus plugs with large amount of mucus. 19.Skin breakdown right arm. PROCEDURES: 1. Intubation 03/13 through 03/25. 2. Arterial line. 3. Echocardiogram 03/14/2017. 4. PICC line 03/14/2017. 5. PRBC x2. 6. Bronchoscopy 03/17/2017. 7. CT chest, abdomen and pelvis 03/17/2017. 8. Tracheostomy 03/24/2017. CONSULTS: 1. Pulmonary. 2. Cardiology. 3. Oncology. 4. Surgery. 5. ENT. REASON FOR HOSPITALIZATION: Severe pneumonia, see dictated H and P. LABORATORY AND X-RAY DATA: CT scan of the chest, abdomen and pelvis 03/17/17 with bilateral pulmonary partially consolidated opacities, most extensive in the left lower lobe, bilateral small pleural effusions and a mild ileus. Chest x-ray on admission with consolidation of the left lower lobe and upper lobe and patchy right upper lobe. X-ray of the neck showed mild enlargement ADMIT: 03/13/2017 RM/LOC: 418 [facility] MR#: [id number] [address] [address] SINAI VALERIO [address] [place] [address] Discharge Summary SEX: F AGE: 61 : 1955 of the epiglottis. Multiple chest x-rays have been taken since that time, and can be noted and reviewed in the chart. X-ray of the abdomen 03/17/2017 was gasless. Final chest x-ray on 03/30/2017 did show bilateral pulmonary opacities that were persistent. Echocardiogram 03/14/2017 with ejection fraction of 55-60%, left atrium moderately dilated, mild tricuspid regurgitation and mild pulmonary hypertension with RVSP of 43. Cytology from BAL with no malignant cells. COURSE IN HOSPITAL: He was admitted in respiratory distress due to her extensive pneumonia. On admission, she was started on Zosyn. She was given Lovenox for DVT prophylaxis. GRANIX was given for her neutropenic fever. Vancomycin was added as well as Maxipime. Pulmonary was consulted. IV fluids were given. BAL was performed. She had an episode of progressive dyspnea and was intubated. Multiple fluid boluses were given due to her hypotension. This is all related to severe septic shock. Art line was placed. Levophed was given. She unfortunately had an episode of SVT versus ventricular tachycardia. The Levophed was discontinued and she was given other pressors. Cardiology was consulted. She was placed on amiodarone and given digoxin for tachycardia. While intubated, pulmonary adjusted her settings to assist with her lactic acidosis. Echocardiogram was done. She was given bicarbonate with IV fluids. Maxipime was changed to Rocephin once it was noted that she was pansensitive with strep. PICC line was placed. Her tube feedings were started. Rates were adjusted. Her potassium and magnesium were supplemented. Her acidosis improved therefore the bicarbonate was discontinued. Lasix was given for her edema which began to become more prominent. She was noted to be C diff positive. She was started on oral vancomycin. Her antibiotics at this time included Rocephin and oral Vanco. Her tube feedings were being discontinued due to the diarrhea and TPN was started. She had been on Solu- Cortef for her severe illness and this was tapered. She was given blood on occasion. As her x-rays were not improving, Merrem was started instead of her Rocephin. We continued with pulmonary toilet to try and get some of her secretions out. She did have a bronchoscopy performed as she was not improving on 03/17/2017. It did not grow anything and just showed significant amount of secretions. This was cleaned out and she had symptomatic improvement. Solu-Medrol was decreased. We continued with supplementation of her potassium. Merrem was changed back to Rocephin and Flagyl was started. This is all felt to be for her severe C diff colitis. Her white count continued to be quite high but she had received stimulation factors as an outpatient due to her recent chemo. Medications were adjusted. We continued with supportive care and aggressive treatment. Digoxin was eventually discontinued and her amiodarone was decreased in dose. Due to her diarrhea, her tube feeding was changed to Vivonex for a short time or an elemental formula to see if that would help. Once again, her potassium was supplemented. Lasix was given for fluid. Her activity was gradually increased. She remained intubated. It was noted that she was having quite a bit of difficulty with weaning and secretions. Therefore, it was clear that she would not be able to come off the ventilator anytime soon. Multiple family discussions and conferences were held and she was awake enough to tell ADMIT: 03/13/2017 RM/LOC: 418 [facility] MR#: [id number] [address] [address] SINAI VALERIO [address] [place] [address] Discharge Summary SEX: F AGE: 61 : 1955 them that she wanted to do the tracheostomy. There was a little distention at first. The tracheostomy was placed without difficulty. She was then able to taper the ventilator successfully. We were also able to continue with suctioning a little bit more aggressively. After the trach was placed, she was able to be extubated. We continued to gradually increase her activity as she had been pretty immobile for quite some time. Many of her old medications were started back up slowly as her blood pressure began to rise. Her Merrem continued. We continued to increase her activity and on 03/30/2017, the IRU had a bed available for her to go for aggressive therapy. DISCHARGE MEDICATIONS: Include the following medications: 1. Cordarone 200 mg daily. 2. Potassium 30 mEq suspension b.i.d. 3. Lopressor 50 b.i.d. 4. DuoNeb every 4. 5. Celexa 20 daily. 6. Neurontin suspension 600 at 0700 hours, 1430 hours and 2200 hours. 7. Robitussin 400 t.i.d. 8. Heparin 5000 subcu b.i.d. 9. Pepcid suspension 20 b.i.d. 10.Lasix 40 mg IV at 0800 hours and 1500 hours. 11.Levaquin 750 IV daily for 14 days at least. 12.Merrem 1 g IV every 8 hours for 14 days at least. 13.Vanco 1 g IV every 18 hours x14 days. 14.Tylenol 650 q.4h. DISCHARGE INSTRUCTIONS: She will have a CBC and a BMP on Tuesday, and a chest x-ray. She needs to improve quickly so she can continue with her chemo. Overall, prognosis is fair. Kelsie James MD/ maia JOB #: [id number] CC: Kelsie James MD, Attending Physician Kelsie James MD, Family Physician MD Bruce Tena MD Steven G Schneider, MD Thomas S Nabity, MD Patrick G Meyers, MD
[2017-06-10] MEDS ORDERED: CELEXA DPS20 MG PO (19:35)
[2017-06-10] MEDS ORDERED: DUONEB DPS3 ML IH (19:35)
[2017-06-10] MEDS ORDERED: CORDARONE DPS200 MG PO (19:35)
[2017-06-10] MEDS ORDERED: PEPCID DPS20 MG PO (19:36)
[2017-06-10] MEDS ORDERED: GABAPENTIN250 MG/5 M PO (19:36)
[2017-06-10] MEDS ORDERED: ROBITUSSIN100 MG/5 M PO (19:37)
[2017-06-10] MEDS ORDERED: HYDROPHOR OINT450 GM TP (19:37)
[2017-06-10] MEDS ORDERED: LIDOCAINE VISCO15 ML PO (19:37)
[2017-06-10] MEDS ORDERED: COLACE-DPS100 MG PO (19:38)
[2017-06-10] MEDS ORDERED: TYLENOL DPS325 MG PO (19:38)
[2017-06-10] MEDS ORDERED: ROXICODONE5 MG/5 ML PO (19:38)
[2017-06-10] MEDS ORDERED: MAALOX DPS30 ML PO (19:38)
[2017-06-10] MEDS ORDERED: DURAGESIC1 EAC4 TD (19:39)
[2017-06-10] MEDS ORDERED: PROVENTIL HFA6.7 GM IH (19:40)
[2017-06-10] MEDS ORDERED: [UNRECOGNIZED DRUG - OTHER] PO (19:40)
[2017-06-10] MEDS ORDERED: VIBRAMYCIN-DPS100 M1 PO (19:41)
[2017-06-10] MEDS ORDERED: DELTASONE DPS5 MG PO (19:44)
[2017-06-10] MEDS ORDERED: [UNRECOGNIZED DRUG - OTHER] TP (19:45)
[2017-07-18] MEDS ORDERED: PROAIR HFA8.5 GM IH (19:12)
[2017-07-18] MEDS ORDERED: ROXICODONE5 MG/5 ML PO (19:12)
[2017-07-18] MEDS ORDERED: ROBAFEN100 MG/5 M PO (19:12)
[2017-07-18] MEDS ORDERED: CLARITIN DPS10 MG PO (19:13)
[2017-07-18] MEDS ORDERED: CELEXA DPS20 MG PO (19:13)
[2017-07-18] MEDS ORDERED: GABAPENTIN250 MG/5 M PO (19:13)
[2017-07-18] MEDS ORDERED: AMIODARONE HCL100 MG PO (19:13)
[2017-07-18] MEDS ORDERED: VITAMIN D1000 UNI1 PO (19:13)
[2017-07-18] MEDS ORDERED: PEPCID DPS20 MG PO (19:14)
[2017-07-18] MEDS ORDERED: DURAGESIC1 EAC3 TD (19:15)
[2017-07-18] MEDS ORDERED: COLACE-DPS100 MG PO (19:15)
[2017-07-18] MEDS ORDERED: DUONEB DPS3 ML IH (19:15)
[2017-07-18] MEDS ORDERED: DELTASONE DPS20 MG PO (19:17)
[2017-07-18] MEDS ORDERED: CIPRO DPS500 MG PO (19:17)
[2017-07-18] MEDS ORDERED: TYLENOL DPS325 MG PO (19:18)
[2017-07-18] MEDS ORDERED: PROVENTIL2.5 MG/3 M IH (19:18)
[2017-07-18] MEDS ORDERED: ACETYLCYST200 MG/1 M IH (19:20)
== END 2017-03-30 11:40 | disposition short-term general hospital (02) | DRG 4 ==
LOC: ER 13:02 → 3ICU 14:40 → 4PCU 03-28 16:33
PROVIDERS: ADMIT Internal Medicine
PROC: 0BH17EZ Insertion of Endotracheal Airway into Trachea, Via Natural or Artificial Opening (ICD-10-PCS; 2017-03-13)
PROC: 5A1955Z Respiratory Ventilation, Greater than 96 Consecutive Hours (ICD-10-PCS; 2017-03-13)
PROC: 02HV33Z Insertion of Infusion Device into Superior Vena Cava, Percutaneous Approach (ICD-10-PCS; 2017-03-14)
PROC: 3E0436Z Introduction of Nutritional Substance into Central Vein, Percutaneous Approach (ICD-10-PCS; 2017-03-16)
PROC: 30233N1 Transfusion of Nonautologous Red Blood Cells into Peripheral Vein, Percutaneous Approach (ICD-10-PCS; 2017-03-16)
PROC: 0BC18ZZ Extirpation of Matter from Trachea, Via Natural or Artificial Opening Endoscopic (ICD-10-PCS; 2017-03-17)
PROC: 0B9G8ZX Drainage of Left Upper Lung Lobe, Via Natural or Artificial Opening Endoscopic, Diagnostic (ICD-10-PCS; 2017-03-17)
PROC: 0BC88ZZ Extirpation of Matter from Left Upper Lobe Bronchus, Via Natural or Artificial Opening Endoscopic (ICD-10-PCS; 2017-03-17)
PROC: 0BCB8ZZ Extirpation of Matter from Left Lower Lobe Bronchus, Via Natural or Artificial Opening Endoscopic (ICD-10-PCS; 2017-03-17)
PROC: 0B110F4 Bypass Trachea to Cutaneous with Tracheostomy Device, Open Approach (ICD-10-PCS; principal; 2017-03-24)
DX: A40.3 Sepsis due to Streptococcus pneumoniae (principal); R65.21 Severe sepsis with septic shock; J13 Pneumonia due to Streptococcus pneumoniae; N17.9 Acute kidney failure, unspecified; A04.7 Enterocolitis due to Clostridium difficile; I24.8 Other forms of acute ischemic heart disease; E87.2 Acidosis; E83.42 Hypomagnesemia; J44.0 Chronic obstructive pulmonary disease with (acute) lower respiratory infection; E46 Unspecified protein-calorie malnutrition; J96.01 Acute respiratory failure with hypoxia; I47.1 Supraventricular tachycardia; I48.91 Unspecified atrial fibrillation; E87.6 Hypokalemia; C09.9 Malignant neoplasm of tonsil, unspecified; I10 Essential (primary) hypertension; D63.0 Anemia in neoplastic disease; K21.9 Gastro-esophageal reflux disease without esophagitis; G89.3 Neoplasm related pain (acute) (chronic); F32.9 Major depressive disorder, single episode, unspecified; Z87.11 Personal history of peptic ulcer disease; Z87.891 Personal history of nicotine dependence; Z93.1 Gastrostomy status

== ENCOUNTER 2017-03-30 10:09 | Inpatient (IN) | payer MEDICAID ==
[~2017-03-30] VITALS: Ht 160 cm; Wt 71.4 kg
--- NOTE | 2017-04-06 06:36 | OR ---
ADMIT: 03/30/2017 RM/LOC: 604 [facility] MR#: [id number] [address] [address] SINAI VALERIO [address] [place] [address] Operative/Delivery Room Report SEX: F AGE: 61 : 1955 SURGERY DATE: 03/30/2017 SURGEON: Terry Acosta MD PROCEDURE: Tracheoscopy. BRIEF HISTORY: Sinai is one week post tracheostomy tube placement in treatment of respiratory insufficiency and pneumonia. She developed hypoxemia this evening and there was concern of possible tracheostomy tube malfunction. ANESTHESIA: None. DESCRIPTION OF PROCEDURE: With the patient in her hospital bed, the flexible fiberoptic pediatric scope was used to examine the tracheostomy tube and trachea. The tracheostomy tube was in good position in the lumen of the trachea. There were no obstructive changes within the tracheostomy tube itself and the trachea was patent from the distal end of the trach tube to the julia. There were no lesions within the tracheostomy tube nor obstructive changes. The fenestrated inner cannula tube was then replaced with nonfenestrated tube so that positive pressure can be used if needed. Her balloon remains deflated but would required reinflation prior to use of positive pressure with BiPAP or ventilator. Terry Acosta MD/ modl JOB #: [id number] CC: Antonio Carolina, Attending Physician Kelsie James, Family Physician
--- NOTE | 2017-04-14 08:14 | OR ---
ADMIT: 03/30/2017 RM/LOC: 604 [facility] MR#: [id number] [facility]#: [id number] [address] [address] SINAI MOON [address] [place] [address] Operative/Delivery Room Report SEX: F AGE: 61 : 1955 SURGERY DATE: 04/13/2017 SURGEON: Louie Juan MD PROCEDURE: Flexible fiberoptic bronchoscopy with bronchoalveolar lavage and endobronchial/endotracheal biopsy. INDICATION: Persistent lung infiltrates and pneumonia as well as mucus plugging. POSTOPERATIVE DIAGNOSIS: Persistent lung infiltrates and pneumonia as well as mucus plugging. ANESTHESIA: IV sedation. PROCEDURE IN DETAIL: After informed consent, Ms. Moon was brought to the operating room. She already had an existing tracheostomy tube in place. She was given IV sedation for the procedure. Through the existing tracheostomy tube, the bronchoscope was entered. It was noted that there were a lot of retained secretions in the airway, these were suctioned clear. At the fenestration of her tracheostomy tube, there was a large amount of what appeared to be necrotic debris that was coming into the tracheostomy tube in a ball-valve fashion with respiration. This appeared to be partially occluding the tracheostomy tube. Using biopsy forceps, this area was localized, and then the biopsy forceps were utilized to remove a large portion of this debris. It was nonvascular, no bleeding occurred. This either represents necrotic tumor or thickened retained secretions. The bronchoscope was advanced through the existing tracheostomy tube, and examination of the tracheobronchial tree was then performed. Main airway of the trachea was normal. Main julia was sharp with normal overlying mucosa. Right bronchial segments 1 through 10 and the subsegments were all identified. Large amount of thin, clear, white retained secretions were present throughout. These were suctioned through the bronchoscope, and sterile saline was instilled through the bronchoscope to help liberate the secretions. There was no evidence of endobronchial disease seen. ADMIT: 03/30/2017 RM/LOC: 604 [facility] MR#: [id number] [facility] [address] [address] SINAI MOON [address] [place] [address] Operative/Delivery Room Report SEX: F AGE: 61 : 1955 The bronchoscope was advanced into the left tracheobronchial tree. Similar findings were noted with somewhat thicker [id number] secretions. No definitive endobronchial obstruction was noted. However, large amount of secretions were present that had to be suctioned through the bronchoscope after administration of sterile saline through the bronchoscope. Specimens were collected and sent for appropriate studies. She tolerated the procedure well. She was awake and alert after the procedure, and no immediate postoperative complications were noted. She was later seen in the postop recovery area, was doing well, back on tracheostomy collar, and mentioned that her breathing has improved considerably from prior to the procedure. Louie Juan MD/ manjinder JOB #: [id number] CC: Antonio Carolina, Attending Physician Kelsie James, Family Physician
--- NOTE | 2017-04-20 08:04 | OR ---
ADMIT: 03/30/2017 RM/LOC: 604 [facility] MR#: [id number] [address] [address] SINAI VALERIO [address] [place] [address] Operative/Delivery Room Report SEX: F AGE: 61 : 1955 Corrected: 04/19/2017 1809 [facility] SURGERY DATE: 04/19/2017 SURGEON: Terry Acosta MD PROCEDURE: Direct examination of tracheostomy tube site and fiberoptic tracheoscopy with the patient in the semi supine position in her hospital bed. PROCEDURE IN DETAIL: Initial fiberoptic tracheoscopy was performed through her existing tracheostomy tube (#8 Shiley cuffed) from the distal end of the tube to the julia was patent. Mucosa is intact. There is no lesion. No obstructive changes or purulence. Her tracheostomy tube was then removed. The trach site and the trachea from the subglottic vocal cord region to the julia was re-examined and found to be patent. There were no intraluminal lesions or obstructive changes. There was no purulence. A new tracheostomy tube was then placed. Shiley #8 cuffless with disposable inner cannula. It was placed without difficulty and secured in position with her tracheostomy collar. There was a small amount of bleeding that arose from the subcutaneous tissues during the removal of the existing tracheostomy tube. When the bleeding stopped spontaneously, there was no bleeding within the trachea. She tolerated this well. Her speaking valve was repositioned and she was able to adequately ventilate and vocalize when breathing through the nose and mouth. We will leave this tube in position through the treatment phase of her radiation therapy. The tracheostomy tube could then be removed at the discretion of her radiation oncologist and shipboard intelligence analyst. Terry Acosta MD/ manjinder JOB #: [id number] CC: Antonio Carolina, Attending Physician Kelsie James, Family Physician Corrected: 04/19/2017 1809 arielle
[2017-04-20] MEDS ORDERED: VITAMIN D1000 UNI1 GT (14:34)
[2017-04-20] MEDS ORDERED: OXY IR DPS5 MG GT (14:35)
[2017-04-20] MEDS ORDERED: DELTASONE DPS10 MG GT (14:35)
[2017-05-03] MEDS ORDERED: CORDARONE DPS200 MG GT (14:13)
[2017-05-03] MEDS ORDERED: TYLENOL DPS325 MG GT (14:14)
[2017-05-03] MEDS ORDERED: NEURONTIN250 MG/5 M GT (14:15)
[2017-05-03] MEDS ORDERED: DUONEB DPS3 ML IH (14:15)
[2017-05-03] MEDS ORDERED: CELEXA DPS20 MG GT (14:15)
[2017-05-03] MEDS ORDERED: PEPCID DPS20 MG GT (14:16)
[2017-05-03] MEDS ORDERED: ROXICODONE5 MG/5 ML GT (14:16)
[2017-05-03] MEDS ORDERED: MUCOMYST 20% IH (14:16)
[2017-05-03] MEDS ORDERED: DELTASONE DPS5 MG GT (14:17)
[2017-05-03] MEDS ORDERED: ROBITUSSIN200 MG/10 GT (14:17)
[2017-05-03] MEDS ORDERED: LIDOCAINE VISCO15 ML PO (14:18)
[2017-05-03] MEDS ORDERED: HYDROPHOR OINT450 GM TP (14:18)
[2017-05-03] MEDS ORDERED: COLACE-DPS100 MG GT (14:19)
[2017-05-03] MEDS ORDERED: MAALOX DPS30 ML GT (14:19)
[2017-05-03] MEDS ORDERED: AUGMENTIN400 MG/5 M GT (14:20)
--- NOTE | 2017-05-18 14:35 | DS ---
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 Other comorbid conditions per initial H and P. Other diagnoses per hospital course below. HOSPITAL COURSE: Please see my initial H and P for details prior to transfer to the IRU. Heparin was continued for DVT prophylaxis. Pain and bowel regimen adjusted. PPI adjusted to pill form p.o. Lab was monitored regularly. The patient was n.p.o., and dietitian was consulted to optimize nutrition and for tube feeding recommendations. Pharmacy followed to optimize medication management. DuoNeb adjusted. OxyIR started for pain as needed. Telemetry discontinued on 03/30/2017. ABGs and chest x-ray for difficulty breathing and hypoxemia on 03/30/[address] Acosta consulted to check trach placement, and trach was in good position. Chest x-ray repeated. Prednisone started for pulmonary issues. Levaquin adjusted to G-tube route from IV. Heparin was going to be adjusted to t.i.d., but the patient had previous bleeding problems with t.i.d. dosing so that is why b.i.d. was used for DVT prophylaxis. There is no DVT during admission. OxyIR adjusted for pain. KCl adjusted for hypokalemia on replacement. Neurontin was adjusted to 500 mg since it was liquid form for ease of administration. Pain was well controlled. Pepcid switched to Protonix per G-tube for GERD. GI prophylaxis. Continuous tube feeding switched to bolus on 04/04/2017. PVRs were normal 17.0 and 25. EdemaWear discontinued, no longer necessary. Titrated trach mask to keep sats greater than 90%. Transferrin saturation and vitamin D added to regular lab. Packer was removed on 04/04/2017. Vanc trough is 18.7 on 04/05/2017. Modified barium swallow study done on 04/07/2017. Right rib series was done for right-sided pain. History of oropharyngeal cancer. The patient did have a fall and that did show right 5-6 rib fractures. The fall happened prior to admission to the hospital. Heparin was discontinued on 04/07/2017. She was ambulating good enough distance to prevent DVT. Vitamin D deficiency was replaced. Prednisone tapered down. Chest x-ray to follow up pneumonia. KCl decreased for replacement. Lasix adjusted. Protonix switched to Pepcid. Vanc trough followed up on. Remained anemic at 8.2 on her hemoglobin. Iron was rechecked. The modified barium swallow study was actually done on 04/08/2017 and was upgraded to nectar thick liquids. No other foods by mouth on that date. Dr. Miller called on 04/10/2017, covering for Dr. James due to hypoxemia and nonspecific low blood pressures, and Lasix was stopped. Lopressor held. One liter of normal saline bolus done. Lab with procalcitonin ordered. Type and cross match unit of packed red blood cells given on 04/10/2017 that seemed to help. Chest x-ray and lab was obtained on 04/11/2017. Sputum Gram stain culture. Pulmonology consult on 04/11/2017. Neb treatments adjusted. Mucomyst started due to less mobility. ADMIT: 03/30/2017 RM/LOC: 604 [facility] MR#: [id number] [address] SINAI VALERIO [address] [place] [address] [place] [address] General Discharge Summary SEX: F AGE: 61 : 1955 Heparin 5000 units q.12 hours was restarted to prevent DVT. Robitussin adjusted before setting secretions. Chest x-ray repeated on 04/12/2017 and CBC the following day. Was made n.p.o. after midnight on 04/13/2017, and tube feedings held for bronch with lavage. Mucous plug removed. Debrox for impacted external auditory canal with cerumen. IV fluids discontinued on 04/17/2017. Portable chest x-ray. Followup pneumonia. Oliva Free Water protocol started on 04/14/2017 with good oral hygiene. Prednisone adjusted. Vancomycin, meropenem, and Levaquin all discontinued on 04/15/2017. Passy- Boyce speaking valve started. Neb treatments continued. Lab was monitored closely. Mucomyst adjusted b.i.d. and b.i.d. p.r.n. Neurontin decreased to 250 mg as pain was well controlled to limit side effects. Heparin was discontinued as ambulation improved and that was enough to prevent DVT. KCl discontinued. Mucomyst adjusted, tapered down. Pepcid adjusted, tapered down. Maalox p.r.n. GERD not controlled with Pepcid. Overnight trend ox done on 04/18/2017. The patient was medically stable at time of discharge with setup for home O2. Please see IRU interdisciplinary discharge summary for details regarding progress in therapy. DISCHARGE DISPOSITION: Home with . Return home with [facility] infusion services for tube feeding and supplies. O2 needs were handled through [facility]. Secondary to the patient's new managed Medicaid plan [employer], home health services, RN, PT, OT, home health aide through [facility] home. Spouse provided transport. DISCHARGE MEDICATIONS: Please see discharge med rec. FOLLOWUP: Dr. Daniels on April 20, Dr. James on May 12. Antonio Carolina MD/ manjinder JOB #: [id number] CC:
[2017-06-10] MEDS ORDERED: CELEXA DPS20 MG PO (19:35)
[2017-06-10] MEDS ORDERED: DUONEB DPS3 ML IH (19:35)
[2017-06-10] MEDS ORDERED: CORDARONE DPS200 MG PO (19:35)
[2017-06-10] MEDS ORDERED: PEPCID DPS20 MG PO (19:36)
[2017-06-10] MEDS ORDERED: GABAPENTIN250 MG/5 M PO (19:36)
[2017-06-10] MEDS ORDERED: HYDROPHOR OINT450 GM TP (19:37)
[2017-06-10] MEDS ORDERED: LIDOCAINE VISCO15 ML PO (19:37)
[2017-06-10] MEDS ORDERED: ROBITUSSIN100 MG/5 M PO (19:37)
[2017-06-10] MEDS ORDERED: MAALOX DPS30 ML PO (19:38)
[2017-06-10] MEDS ORDERED: ROXICODONE5 MG/5 ML PO (19:38)
[2017-06-10] MEDS ORDERED: COLACE-DPS100 MG PO (19:38)
[2017-06-10] MEDS ORDERED: TYLENOL DPS325 MG PO (19:38)
[2017-06-10] MEDS ORDERED: DURAGESIC1 EAC4 TD (19:39)
[2017-06-10] MEDS ORDERED: PROVENTIL HFA6.7 GM IH (19:40)
[2017-06-10] MEDS ORDERED: [UNRECOGNIZED DRUG - OTHER] PO (19:40)
[2017-06-10] MEDS ORDERED: VIBRAMYCIN-DPS100 M1 PO (19:41)
[2017-06-10] MEDS ORDERED: DELTASONE DPS5 MG PO (19:44)
[2017-06-10] MEDS ORDERED: [UNRECOGNIZED DRUG - OTHER] TP (19:45)
[2017-07-18] MEDS ORDERED: PROAIR HFA8.5 GM IH (19:12)
[2017-07-18] MEDS ORDERED: ROXICODONE5 MG/5 ML PO (19:12)
[2017-07-18] MEDS ORDERED: ROBAFEN100 MG/5 M PO (19:12)
[2017-07-18] MEDS ORDERED: CLARITIN DPS10 MG PO (19:13)
[2017-07-18] MEDS ORDERED: AMIODARONE HCL100 MG PO (19:13)
[2017-07-18] MEDS ORDERED: CELEXA DPS20 MG PO (19:13)
[2017-07-18] MEDS ORDERED: GABAPENTIN250 MG/5 M PO (19:13)
[2017-07-18] MEDS ORDERED: VITAMIN D1000 UNI1 PO (19:13)
[2017-07-18] MEDS ORDERED: PEPCID DPS20 MG PO (19:14)
[2017-07-18] MEDS ORDERED: DUONEB DPS3 ML IH (19:15)
[2017-07-18] MEDS ORDERED: DURAGESIC1 EAC3 TD (19:15)
[2017-07-18] MEDS ORDERED: COLACE-DPS100 MG PO (19:15)
[2017-07-18] MEDS ORDERED: CIPRO DPS500 MG PO (19:17)
[2017-07-18] MEDS ORDERED: DELTASONE DPS20 MG PO (19:17)
[2017-07-18] MEDS ORDERED: PROVENTIL2.5 MG/3 M IH (19:18)
[2017-07-18] MEDS ORDERED: TYLENOL DPS325 MG PO (19:18)
[2017-07-18] MEDS ORDERED: ACETYLCYST200 MG/1 M IH (19:20)
== END 2017-04-19 16:45 | disposition home health service (06) | DRG 193 ==
LOC: 6IRU 11:30
PROVIDERS: ADMIT Physical Medicine & Rehabilitation
DX: J13 Pneumonia due to Streptococcus pneumoniae (principal); J96.01 Acute respiratory failure with hypoxia; D70.9 Neutropenia, unspecified; T17.890A Other foreign object in other parts of respiratory tract causing asphyxiation, initial encounter; S12.400A Unspecified displaced fracture of fifth cervical vertebra, initial encounter for closed fracture; Z43.0 Encounter for attention to tracheostomy; Z99.81 Dependence on supplemental oxygen; E44.1 Mild protein-calorie malnutrition; S12.500A Unspecified displaced fracture of sixth cervical vertebra, initial encounter for closed fracture; J44.9 Chronic obstructive pulmonary disease, unspecified; R13.12 Dysphagia, oropharyngeal phase; G89.29 Other chronic pain; R53.81 Other malaise; R19.7 Diarrhea, unspecified; E87.6 Hypokalemia; R60.9 Edema, unspecified; D64.9 Anemia, unspecified; C09.9 Malignant neoplasm of tonsil, unspecified; E55.9 Vitamin D deficiency, unspecified; I10 Essential (primary) hypertension; R03.1 Nonspecific low blood-pressure reading; H61.20 Impacted cerumen, unspecified ear; W19.XXXA Unspecified fall, initial encounter; X58.XXXA Exposure to other specified factors, initial encounter; Z93.1 Gastrostomy status